=== PATIENT | female | born 1940 | race Caucasian/White ===

== ENCOUNTER 2016-10-24 13:03 | Emergency (ER) | payer MEDICARE, OTHER ==
--- NOTE | 2016-10-24 13:46 | ER Document Report ---
ED General - General Chief Complaint: Closed Head Injury Stated Complaint: HEAD LACERATION Mode of Arrival: Medic Information source: Patient Notes: 76-year-old female presents after mechanical fall with complaints of left hip pain shaking her head. Patient denies any neurological deficits is unable to bear weight - HPI Onset: Just prior to arrival Onset/Duration: Sudden Quality of pain: Sharp Severity: Mild Pain Level: 2 Associated symptoms: None Exacerbated by: Movement Relieved by: Denies Similar symptoms previously: No Recently seen / treated by doctor: No Past Medical History - Social History Smoking Status: Never Smoker Cigarette use (# per day): No Chew tobacco use (# tins/day): No Smoking Education Provided: No Family History: Reviewed & Not Pertinent Review of Systems - Review of Systems Notes: REVIEW OF SYSTEMS: CONSTITUTIONAL : Denies fever, chills, or sweats. Denies recent illness. EENT: Denies eye, ear, throat, or mouth pain or symptoms. Denies nasal or sinus congestion or discharge. Denies throat, tongue, or mouth swelling or difficulty swallowing. CARDIOVASCULAR: Denies chest pain. Denies palpitations or racing or irregular heart beat. Denies ankle edema. RESPIRATORY: Denies cough, cold, or chest congestion. Denies shortness of breath, difficulty breathing, or wheezing. GASTROINTESTINAL: Denies abdominal pain or distention. Denies nausea, vomiting , or diarrhea. Denies blood in vomitus, stools, or per rectum. Denies black, tarry stools. Denies constipation. GENITOURINARY: Denies difficulty urinating, painful urination, burning, frequency, blood in urine, or discharge. FEMALE GENITOURINARY: Denies vaginal bleeding, heavy or abnormal periods, irregular periods. Denies vaginal discharge or odor. MUSCULOSKELETAL: Admits to left hip pain. SKIN: Admits to bleeding from the head HEMATOLOGIC : Denies easy bruising or bleeding. LYMPHATIC: Denies swollen, enlarged glands. NEUROLOGICAL: Denies confusion or altered mental status. Denies passing out or loss of consciousness. Denies dizziness or lightheadedness. Denies headache. Denies weakness or paralysis or loss of use of either side. Denies problems with gait or speech. Denies sensory loss, numbness, or tingling. Denies seizures. PSYCHIATRIC: Denies anxiety or stress. Denies depression, suicidal ideation, or homicidal ideation. ALL OTHER SYSTEMS REVIEWED AND NEGATIVE. Dictation was performed using [employer] voice recognition software PHYSICAL EXAMINATION: GENERAL: Well-appearing, well-nourished and in no acute distress. HEAD: Left scalp laceration 3.2 cm dried blood noted EYES: Pupils equal round and reactive to light, extraocular movements intact, conjunctiva are normal. ENT: Nares patent, oropharynx clear without exudates. Moist mucous membranes. NECK: Normal range of motion, supple without lymphadenopathy LUNGS: Breath sounds clear to auscultation bilaterally and equal. No wheezes rales or rhonchi. HEART: Regular rate and rhythm without murmurs ABDOMEN: Soft, nontender, nondistended abdomen. No guarding, no rebound. No masses appreciated. Female : deferred Musculoskeletal: Left leg is shortened and externally rotated NEUROLOGICAL: Cranial nerves grossly intact. Normal speech, normal gait. Normal sensory, motor exams PSYCH: Normal mood, normal affect. SKIN: 3.2 cm laceration Course - Re-evaluation Re-evalutation: 10/24/16 14:16 [facility] paged since we do not have orthopedic coverage 10/24/16 14:28 Patient received fentanyl prior to arrival to emergency department 10/24/16 14:[address] to have had a fracture, 2 times were made to transfer the patient to [facility] however phone was disconnected both times. I'm awaiting call back at this time - Diagnostic Test Radiology reviewed: Image reviewed, Reports reviewed - Intertrochanteric fracture Procedures - Laceration/Wound Repair Left Posterior Head Wound length (cm): 3 Wound's Depth, Shape: Linear Laceration pre-procedure: Sterile PPE donned Wound explored: Clean, No foreign body removed Wound Debrided: Minimal Wound Repaired With: Lizz Number of Sutures: 2 Layer Closure?: No Post-procedure NV exam normal: No Complications: No Discharge - Discharge Clinical Impression: Intertrochanteric fracture of left femur Qualifiers: Encounter type: initial encounter Fracture type: closed Qualified Code(s): S72.142A - Displaced intertrochanteric fracture of left femur, initial encounter for closed fracture Laceration of head Qualifiers: Encounter type: initial encounter Location of open wound of head: scalp Foreign body presence: without foreign body Qualified Code(s): S01.01XA - Laceration without foreign body of scalp, initial encounter Condition: Stable Disposition: [facility]
[2016-10-24] MEDS ORDERED: HYDROMORPHONE HCL INJ/PF 2 MG/ML AMPULE IV ONE ×2 (14:27→14:49)
[2016-10-24 14:51] LABS: ABSOLUTE BASOPHILS # (AUTO) 0.1 10^3/uL (0.0-0.2); ABSOLUTE LYMPHOCYTES (AUTO) 4.2 10^3/uL (0.5-4.7); ABSOLUTE MONOCYTES (AUTO) 0.8 10^3/uL (0.1-1.4); ABSOLUTE NEUT (AUTO) 8.7 10^3/uL (1.7-8.2); BASOPHILS % (AUTO) 0.6 % (0-2); EOSINOPHILS % (AUTO) 0.2 % (0-6); HEMATOCRIT 39.4 % (36.0-47.0); HEMOGLOBIN 12.8 g/dL (12.0-15.5); LYMPHOCYTES % (AUTO) 30.5 % (13-45); MEAN CORPUSCULAR HEMOGLOBIN 28.2 pg (27.0-33.4); MEAN CORPUSCULAR HGB CONC 32.5 g/dL (32.0-36.0); MEAN CORPUSCULAR VOLUME 87 fl (80-97); MONOCYTES % (AUTO) 5.6 % (3-13); RED BLOOD COUNT 4.54 10^6/uL (3.72-5.28); RED CELL DISTRIBUTION WIDTH 14.4 % (11.5-14.0); SEGMENTED NEUTROPHILS % (AUTO) 63.1 % (42-78); WHITE BLOOD COUNT 13.9 10^3/uL (4.0-10.5)
[2016-10-24 14:59] LABS: APPEARANCE,URINE CLEAR; BILIRUBIN,URINE NEGATIVE (NEGATIVE); GLUCOSE, URINE NEGATIVE (NEGATIVE); KETONES,URINE NEGATIVE (NEGATIVE); LEUKOCYTE ESTERASE,URINE NEGATIVE (NEGATIVE); NITRITE,URINE NEGATIVE (NEGATIVE); PROTEIN,URINE NEGATIVE (NEGATIVE); URINE SPECIFIC GRAVITY 1.008; UROBILINOGEN,URINE NEGATIVE mg/dL (<2.0)
[2016-10-24 15:11] LABS: ALANINE AMINOTRANSFERASE 26 U/L (9-52); ALBUMIN 4.2 g/dL (3.5-5.0); ALKALINE PHOSPHATASE 83 U/L (38-126); ANION GAP 13 (5-19); ASPARTATE AMINO TRANSFERASE 25 U/L (14-36); BILIRUBIN,TOTAL 0.5 mg/dL (0.2-1.3); BLOOD UREA NITROGEN 25 mg/dL (7-20); CALCIUM 9.9 mg/dL (8.4-10.2); CARBON DIOXIDE 25 mmol/L (22-30); CHLORIDE 101 mmol/L (98-107); CREATINE KINASE 38 U/L (30-135); CREATININE RESULT 0.63 mg/dL (0.52-1.25); GLUCOSE 197 mg/dL (75-110); POTASSIUM 4.3 mmol/L (3.6-5.0); SODIUM 139.2 mmol/L (137-145); TOTAL PROTEIN 6.5 g/dL (6.3-8.2)
[2016-10-24 15:23] LABS: CREATINE KINASE MB 0.55 ng/mL (<4.55)
[2016-10-24 15:24] LABS: TROPONIN I < 0.012 ng/mL
[2016-10-24 15:44] VITALS: BP 127/65
--- NOTE | 2016-10-24 17:04 | ER Document Report ---
Doctor's Note Notes: 10/24/16 17:03 Patient reevaluated just prior to transport to [facility]. Patient states that her pain is well-controlled and she is in no distress. She is alert and conversant. Questions from the family answered. She does have mild oozing from her scalp laceration that has been stapled, and this will be cleaned and bandaged prior to her prior to her transfer.
== END 2016-10-24 17:45 | disposition short-term general hospital (02) ==
LOC: ER 13:03
PROC: 0HQ0XZZ Repair Scalp Skin, External Approach (ICD-10-PCS; principal; 2016-10-24)
DX: S72.142A Displaced intertrochanteric fracture of left femur, initial encounter for closed fracture (principal); S01.01XA Laceration without foreign body of scalp, initial encounter; W19.XXXA Unspecified fall, initial encounter
CPT/HCPCS: 12002; 99285; 51702; 96374; 36415; 82553; 82550; 85025; 80053; 81001; 84484; 83880; 71010; 70450; 72125; 72192; J1170

== ENCOUNTER 2020-03-05 15:16 | Inpatient (IN) | payer MEDICARE ==
[2020-03-05 15:50] LABS: VENOUS BLOOD BASE EXCESS -7.8 mmol/L; VENOUS BLOOD HCO3 17.6 mmol/L (20-32); VENOUS BLOOD PCO2 35.7 mmHg (35-63); VENOUS BLOOD PH 7.31 (7.30-7.42)
[2020-03-05 15:52] LABS: ABSOLUTE BASOPHILS # (AUTO) 0.1 10^3/uL (0.0-0.2); ABSOLUTE LYMPHOCYTES (AUTO) 2.7 10^3/uL (0.5-4.7); ABSOLUTE MONOCYTES (AUTO) 0.5 10^3/uL (0.1-1.4); BASOPHILS % (AUTO) 0.7 % (0-2); EOSINOPHILS % (AUTO) 0.1 % (0-6); HEMATOCRIT 43.8 % (36.0-47.0); HEMOGLOBIN 14.3 g/dL (12.0-15.5); LYMPHOCYTES % (AUTO) 19.9 % (13-45); MEAN CORPUSCULAR HEMOGLOBIN 26.6 pg (27.0-33.4); MEAN CORPUSCULAR HGB CONC 32.7 g/dL (32.0-36.0); MEAN CORPUSCULAR VOLUME 81 fl (80-97); PLATELET COUNT 345 10^3/uL (150-450); RED BLOOD COUNT 5.38 10^6/uL (3.72-5.28); RED CELL DISTRIBUTION WIDTH 19.4 % (11.5-14.0); SEGMENTED NEUTROPHILS % (AUTO) 75.3 % (42-78); TOTAL CELLS COUNTED % (AUTO) 100 %; WHITE BLOOD COUNT 13.4 10^3/uL (4.0-10.5)
[2020-03-05 16:12] LABS: ALBUMIN 4.6 g/dL (3.5-5.0); ALKALINE PHOSPHATASE 90 U/L (38-126); ASPARTATE AMINO TRANSFERASE 35 U/L (14-36); BILIRUBIN,DIRECT 0.5 mg/dL (0.0-0.4); BILIRUBIN,TOTAL 1.1 mg/dL (0.2-1.3); BLOOD UREA NITROGEN 51 mg/dL (7-20); CALCIUM 11.4 mg/dL (8.4-10.2); GLUCOSE 281 mg/dL (75-110); POTASSIUM 4.1 mmol/L (3.6-5.0); TOTAL PROTEIN 7.4 g/dL (6.3-8.2)
[2020-03-05 16:18] LABS: CARBON DIOXIDE 17 mmol/L (22-30); CHLORIDE 85 mmol/L (98-107)
--- NOTE | 2020-03-05 16:20 | RADIOLOGY REPORT (SQ) ---
EXAM DESCRIPTION: 10/24/2016 CHEST SINGLE VIEW IMAGES COMPLETED DATE/TIME: 03/05/2020 3:00 pm REASON FOR STUDY: bed 19 sepsis protocol COMPARISON: 10/24/2026 EXAM PARAMETERS: NUMBER OF VIEWS: One view. TECHNIQUE: Single frontal radiographic view of the chest acquired. RADIATION DOSE: NA LIMITATIONS: None. FINDINGS: LUNGS AND PLEURA: No opacities, masses or pneumothorax. No pleural effusion. MEDIASTINUM AND HILAR STRUCTURES: No masses. Contour normal. HEART AND VASCULAR STRUCTURES: Heart normal in size. Normal vasculature. BONES: No acute findings. HARDWARE: None in the chest. OTHER: No other significant finding. IMPRESSION: NO ACUTE RADIOGRAPHIC FINDING IN THE CHEST. TECHNICAL DOCUMENTATION: JOB ID: [id number] 2010 [employer]- All Rights Reserved Reading location - IP/workstation name: [email or web address]
[2020-03-05 16:23] LABS: ANION GAP 28 (5-19)
[2020-03-05 16:24] LABS: INTERNATIONAL RATION (INR) 3.71; PROTHROMBIN TIME 37.7 SEC (11.4-15.4)
[2020-03-05] MEDS ORDERED: RINGERS SOLUTION,LACTATED 1,000 ML IV PRN (16:26)
--- NOTE | 2020-03-05 16:37 | ER Document Report ---
ED General - General Chief Complaint: Weakness Stated Complaint: SEPSIS Time Seen by Provider: 03/05/20 16:19 - HPI Notes: Patient is a 79-year-old female who is brought into the emergency department for evaluation. The majority of the history is gained from nursing, who is spoken directly to son. Evidently he has sent her in for failure to thrive. She has been losing weight. She is been falling frequently. She lives alone, has dementia, is on Eliquis. He is concerned that she is no longer safe at home, was hoping for intermediate placement. She actually an appointment with her doctor tomorrow. The patient admits that she just does not have much of an appetite, states her stomach bothers her, but denies any paulina vomiting. She cannot tell me when her last bowel movement was. She states she has no pain or complaints at this time. She admits she has fallen, and I asked her if she has hit her head. She states to me "every time." - Related Data Allergies/Adverse Reactions: Sulfa (Sulfonamide Antibiotics) Allergy (Verified 03/05/20 16:15) Past Medical History - General Information source: Relative, Emergency Med Personnel - Social History Smoking Status: Former Smoker Family History: Reviewed & Not Pertinent Patient has homicidal ideation: No - Past Medical History Cardiac Medical History: Reports: Hx Atrial Fibrillation Review of Systems - Review of Systems Constitutional: See HPI Gastrointestinal: See HPI Musculoskeletal: See HPI -: Yes All other systems reviewed and negative Physical Exam - Vital signs Vitals: Temp 95.8 F L 03/05/20 15:16 - Notes Notes: This is a frail-appearing 79-year-old female who appears her stated age. She is sitting upright in the bed, appears comfortable. Vital signs reviewed, please refer to chart. Head is normocephalic, atraumatic. Pupils equal round, reactive to light. Neck is supple without meningismus. Heart is regular rate and rhythm, systolic murmur noted. Lungs are clear to auscultation bilaterally. Abdomen is soft, nontender, normoactive bowel sounds throughout. Extremities without cyanosis, clubbing. Posterior calves are nontender. Peripheral pulses are equal, but diminished. Skin is warm and dry. Patient is awake, alert, disoriented to time, believes she is in [facility]. She moves all 4 extremities spontaneously, no gross facial asymmetry. Course - Re-evaluation Re-evalutation: 03/05/20 16:35 Patient presents to the emergency department for evaluation. Upon arrival she was found to be hypothermic. Rectal temperature confirmed this. She was in itially given warm blankets, I will go ahead and start warmed fluids as well. Laboratory investigations confirm leukocytosis, hyponatremia, abnormal renal function. Sepsis work-up has begun, and her lactic acid was over 10. I do not have any records of congestive heart failure, 2 L of warmed LR are ordered. Because of her frequent falls and history of dementia, as well as being anticoagulated, decision was made to take a CT scan of the head and neck as well. Currently, patient's blood pressure is 93/50, she has received fluid resuscitation. We will continue IV fluids. Awaiting further results, she is stable at this time. We will continue to monitor. 03/05/20 17:39 Patient being rewarmed. She has been stable. Given her hypothermia, acute kidney injury, and mild leukocytosis, she does meet sirs criteria. She is treated with IV cefepime. Cultures are all pending. I spoke with Dr. Young, he will admit the patient for further care. - Vital Signs Vital signs: Temp Pulse Resp BP Pulse Ox 95.8 F L 100 03/05/20 15:16 03/05/20 15:17 - Laboratory Result Diagrams: 03/05/20 15:10 03/05/20 15:10 Laboratory results interpreted by me: 03/05/20 03/05/20 03/05/20 15:10 15:10 15:10 WBC 13.4 H RBC 5.38 H MCH 26.6 L RDW 19.4 H Absolute Neuts (auto) 10.0 H PT VBG HCO3 17.6 L Sodium 129.7 L Chloride 85 L Carbon Dioxide 17 L Anion Gap 28 H BUN 51 H Creatinine 1.58 H Est GFR ( Amer) 38 L Est GFR (MDRD) Non-Af 32 L Glucose 281 H POC Glucose Lactic Acid Calcium 11.4 H Direct Bilirubin 0.5 H Urine Ketones 03/05/20 03/05/20 03/05/20 15:10 15:32 15:40 WBC RBC MCH RDW Absolute Neuts (auto) PT VBG HCO3 Sodium Chloride Carbon Dioxide Anion Gap BUN Creatinine Est GFR ( Amer) Est GFR (MDRD) Non-Af Glucose POC Glucose 242 H Lactic Acid 10.2 H Calcium Direct Bilirubin Urine Ketones TRACE H 03/05/20 16:00 WBC RBC MCH RDW Absolute Neuts (auto) PT 37.7 H VBG HCO3 Sodium Chloride Carbon Dioxide Anion Gap BUN Creatinine Est GFR ( Amer) Est GFR (MDRD) Non-Af Glucose POC Glucose Lactic Acid Calcium Direct Bilirubin Urine Ketones - Diagnostic Test Radiology reviewed: Reports reviewed Radiology results interpreted by me: 03/05/20 17:38 Chest X-Ray 03/05/20 15:17 IMPRESSION: NO ACUTE RADIOGRAPHIC FINDING IN THE CHEST. Head CT 03/05/20 16:25 IMPRESSION: NO ACUTE INTRACRANIAL FINDINGS. EVIDENCE OF ACUTE STROKE: NO. Cervical Spine CT 03/05/20 16:26 IMPRESSION: CHRONIC DEGENERATIVE CHANGES. NO ACUTE FINDINGS. - EKG Interpretation by Me Additional EKG results interpreted by me: 03/05/20 17:39 Atrial fibrillation with a rate of 64 bpm. Left axis deviation, IVCD. No acute ST elevation concerning for ischemia infarction. No studies immediately available for comparison. Discharge - Discharge Clinical Impression: SIRS (systemic inflammatory response syndrome), Hyponatremia, Abnormal renal function, Lactic acidosis Hypothermia Qualifiers: Encounter type: initial encounter Qualified Code(s): T68.XXXA - Hypothermia, initial encounter Condition: Stable Disposition: ADMITTED INPATIENT Admitting Provider: Hector (Hospitalist) Unit Admitted: [facility]
[2020-03-05] MEDS ORDERED: RINGERS SOLUTION,LACTATED 1,000 ML IV ONE (17:05)
[2020-03-05 17:12] LABS: APPEARANCE,URINE CLEAR; BILIRUBIN,URINE NEGATIVE (NEGATIVE); COLOR,URINE YELLOW; GLUCOSE, URINE NEGATIVE (NEGATIVE); KETONES,URINE TRACE mg/dL (NEGATIVE); LEUKOCYTE ESTERASE,URINE NEGATIVE (NEGATIVE); NITRITE,URINE NEGATIVE (NEGATIVE); PROTEIN,URINE NEGATIVE (NEGATIVE); URINE SPECIFIC GRAVITY 1.013; UROBILINOGEN,URINE NEGATIVE mg/dL (<2.0)
--- NOTE | 2020-03-05 17:17 | RADIOLOGY REPORT (SQ) ---
EXAM DESCRIPTION: CT HEAD WITHOUT IMAGES COMPLETED DATE/TIME: 03/05/2020 5:05 pm REASON FOR STUDY: fall, on eliquis COMPARISON: 10/24/2016 TECHNIQUE: Axial images acquired through the brain without intravenous contrast. Images reviewed wit h bone, brain and subdural windows. Images stored on PACS. All CT scanners at this facility use dose modulation, iterative reconstruction, and/or weight based d osing when appropriate to reduce radiation dose to as low as reasonably achievable (ALARA). [facility]: Dose Right [facility]: CareDose [facility]: Dose Right [facility]: Teradose 4D [facility]: [employer]ecuritrex RADIATION DOSE: CT Rad equipment meets quality standard of care and radiation dose reduction techniq ues were employed. CTDIvol: 53.2 mGy. DLP: 1070 mGy-cm.. LIMITATIONS: None. FINDINGS: VENTRICLES: Normal size and contour. CEREBRUM: No masses. No hemorrhage. No midline shift. Age appropriate white matter. No evidence for a cute infarction. CEREBELLUM: No masses. No hemorrhage. No alteration of density. No evidence for acute infarction. EXTRA-AXIAL SPACES: No fluid collections. ORBITS AND GLOBE: No intra- or extraconal masses. Normal contour of globe without masses. CALVARIUM: No fracture. PARANASAL SINUSES: No fluid or mucosal thickening. SOFT TISSUES: No mass or hematoma. OTHER: No other significant finding. IMPRESSION: NO ACUTE INTRACRANIAL FINDINGS. EVIDENCE OF ACUTE STROKE: NO. TECHNICAL DOCUMENTATION: JOB ID: [id number] [place]-72 Quality ID # 436: Final reports with documentation of one or more dose reduction techniques (e.g., Au tomated exposure control, adjustment of the mA and/or kV according to patient size, use of iterative reconstruction technique) 2010 [employer] All Rights Reserved Reading location - IP/workstation name: [email or web address]
--- NOTE | 2020-03-05 17:20 | RADIOLOGY REPORT (SQ) ---
EXAM DESCRIPTION: CT CERVICAL SPINE WITHOUT IMAGES COMPLETED DATE/TIME: 03/05/2020 5:05 pm REASON FOR STUDY: fall COMPARISON: 10/24/2016 TECHNIQUE: Axial images acquired through the cervical spine without intravenous contrast. Images re viewed with lung, soft tissue and bone windows. Reconstructed coronal and sagittal MPR images review ed. Images stored on PACS. All CT scanners at this facility use dose modulation, iterative reconstruction, and/or weight based d osing when appropriate to reduce radiation dose to as low as reasonably achievable (ALARA). [facility]: Dose Right [facility]: CareDose [facility]: Dose Right [facility]: Teradose 4D [facility]: [employer] RADIATION DOSE: CT Rad equipment meets quality standard of care and radiation dose reduction techniq ues were employed. CTDIvol: 9.3 mGy. DLP: 151 mGy-cm. mGy. LIMITATIONS: None. FINDINGS: ALIGNMENT: Anatomic. MINERALIZATION: Normal. VERTEBRAL BODIES: No fractures or dislocation. DISCS: Multilevel disc space narrowing with osteophytes. FACETS, LATERAL MASSES, POSTERIOR ELEMENTS: Facet arthropathy. No fractures. No dislocation. No ac [place] findings. HARDWARE: None in the spine. VISUALIZED RIBS: No fractures. LUNG APICES AND SOFT TISSUES: No significant or acute findings. OTHER: No other significant finding. IMPRESSION: CHRONIC DEGENERATIVE CHANGES. NO ACUTE FINDINGS. TECHNICAL DOCUMENTATION: JOB ID: [id number] [place]-72 Quality ID # 436: Final reports with documentation of one or more dose reduction techniques (e.g., Au tomated exposure control, adjustment of the mA and/or kV according to patient size, use of iterative reconstruction technique) 2010 [employer]- All Rights Reserved Reading location - IP/workstation name: [email or web address]
[2020-03-05] MEDS ORDERED: CEFEPIME 1 GM/D5W RTU 1 GM/50 ML RTUPB IV ONE (17:33)
[2020-03-05] MEDS ORDERED: TEMAZEPAM 7.5 MG CAPSULE PO PRN (18:15)
[2020-03-05] MEDS ORDERED: PROMETHAZINE HCL INJ 25 MG/1 ML VIAL IV PRN (18:15)
[2020-03-05] MEDS ORDERED: MAGNESIUM HYDROXIDE SUSP 30 ML UDCUP PO PRN (18:15)
[2020-03-05] MEDS ORDERED: ONDANSETRON HCL INJ/PF 4 MG/2 ML SDV IV PRN (18:15)
[2020-03-05] MEDS ORDERED: IPRATROPIUM/ALBUTEROL 0.5-2.5 MG/3 ML AMPUL NEB PRN (18:15)
[2020-03-05] MEDS ORDERED: OXYCODONE-ACETAMINOPHEN 5-325 MG TABLET PO PRN (18:15)
[2020-03-05] MEDS ORDERED: ACETAMINOPHEN 325 MG TABLET PO PRN (18:15)
[2020-03-05] MEDS ORDERED: ZOLEDRONIC ACID 4 MG/100 ML RTU IV ONE (18:30)
--- NOTE | 2020-03-05 18:39 | PDOC H&P ---
History of Present Illness History of Present Illness: YUSRA LOVETT is a 79 year old female past medical history of atrial fibrillation anticoagulated, tobacco abuse, hypertension, dementia, who was brought to ED by her son who is not present at the room currently. Source of history is ED physician, chart review and patient herself. As per ED physician patient was brought to ED for concern about her rectal and falls and failure to thrive, patient lives by herself and family is concerned that she is not safe at home alone. Patient herself is very pleasant and cooperative with physical examination but unfortunately she has some dementia and does not provide much history, she is alert and oriented x2 she said that she is living alone and takes care of herself, she does cook for herself however for the last 6 months she has not had much because of low appetite, otherwise she denies any weight changes, headache, vision changes, dysphagia, odynophagia, shortness of breath, chest pain, orthopnea, paroxysmal nocturnal dyspnea, nausea, vomiting, abdominal pain, diarrhea, polyuria, polydipsia or any dysuria. On initial ED evaluation patient was noted to be hypothermic with significant leukocytosis and elevated lactic acid and ARMANI. Patient was started on broad- spectrum IV antibiotics and IV fluids and hospitalist consulted for admission. Given history of recurrent falls and being anticoagulated a CT head and neck was obtained which were both negative for any acute abnormalities. Past Medical History Cardiac Medical History: Reports: Atrial Fibrillation Social History Smoking Status: Former Smoker Family History Family History: Reviewed & Not Pertinent Parental Family History Reviewed: Yes Children Family History Reviewed: Yes Sibling(s) Family History Reviewed.: Yes Medication/Allergy Home Medications: Apixaban [Eliquis 5 mg Tablet] 5 mg PO BID 03/05/20 Enalapril Maleate [Vasotec 2.5 mg Tablet] 2.5 mg PO Q12 03/05/20 Furosemide [Lasix 40 mg Tablet] 40 mg PO DAILY 03/05/20 Isosorbide Mononitrate [Imdur 30 mg Tablet.er] 30 mg PO Q12 03/05/20 Metformin HCl [Metformin HCl ER] 500 mg PO BID 03/05/20 Venlafaxine HCl 37.5 mg PO DAILY 03/05/20 Allergies/Adverse Reactions: Sulfa (Sulfonamide Antibiotics) Allergy (Verified 03/05/20 16:15) Review of Systems Review of Systems: as per hpi Physical Exam Vital Signs: Temp Pulse Resp BP Pulse Ox 95.8 F L 14 100/61 100 03/05/20 15:16 03/05/20 18:00 03/05/20 18:00 03/05/20 16:48 Intake & Output 03/04/20 03/05/20 03/06/20 06:59 06:59 06:59 Weight 67.1 kg General appearance: PRESENT: no acute distress, thin, well-developed, well- nourished Head exam: PRESENT: atraumatic, normocephalic Respiratory exam: PRESENT: clear to auscultation leonardo. ABSENT: rales, rhonchi, wheezes Cardiovascular exam: PRESENT: RRR. ABSENT: diastolic murmur, rubs, systolic murmur GI/Abdominal exam: PRESENT: normal bowel sounds, soft. ABSENT: distended, guarding, mass, organolmegaly, rebound, tenderness Extremities exam: PRESENT: full ROM. ABSENT: calf tenderness, clubbing, pedal edema Neurological exam: PRESENT: alert, awake, oriented to person, oriented to place, CN II-XII grossly intact. ABSENT: motor sensory deficit Skin exam: PRESENT: dry, intact, warm. ABSENT: cyanosis, rash Results Laboratory Results: 03/05/20 15:10 03/05/20 15:10 03/05/20 03/05/20 03/05/20 15:10 15:10 15:10 WBC 13.4 H RBC 5.38 H Hgb 14.3 Hct 43.8 MCV 81 MCH 26.6 L MCHC 32.7 RDW 19.4 H Plt Count 345 Seg Neutrophils % 75.3 VBG pH 7.31 VBG pCO2 35.7 VBG HCO3 17.6 L VBG Base Excess -7.8 Sodium 129.7 L Potassium 4.1 Chloride 85 L Carbon Dioxide 17 L Anion Gap 28 H BUN 51 H Creatinine 1.58 H Est GFR ( Amer) 38 L Glucose 281 H Lactic Acid Calcium 11.4 H Total Bilirubin 1.1 AST 35 Alkaline Phosphatase 90 Total Protein 7.4 Albumin 4.6 Urine Color Urine Appearance Urine pH Ur Specific [place] Urine Protein Urine Glucose (UA) Urine Ketones Urine Blood Urine Nitrite Ur Leukocyte Esterase Urine WBC (Auto) Urine RBC (Auto) 06/14/20 06/14/20 15:10 15:40 WBC RBC Hgb Hct MCV MCH MCHC RDW Plt Count Seg Neutrophils % VBG pH VBG pCO2 VBG HCO3 VBG Base Excess Sodium Potassium Chloride Carbon Dioxide Anion Gap BUN Creatinine Est GFR ( Amer) Glucose Lactic Acid 10.2 H Calcium Total Bilirubin AST Alkaline Phosphatase Total Protein Albumin Urine Color YELLOW Urine Appearance CLEAR Urine pH 5.0 Ur Specific [place] 1.013 Urine Protein NEGATIVE Urine Glucose (UA) NEGATIVE Urine Ketones TRACE H Urine Blood NEGATIVE Urine Nitrite NEGATIVE Ur Leukocyte Esterase NEGATIVE Urine WBC (Auto) 0 Urine RBC (Auto) 1 03/05/20 03/05/20 15:10 16:19 Troponin I Cancelled 0.040 Impressions: Chest X-Ray 03/05/20 15:17 IMPRESSION: NO ACUTE RADIOGRAPHIC FINDING IN THE CHEST. Head CT 03/05/20 16:25 IMPRESSION: NO ACUTE INTRACRANIAL FINDINGS. EVIDENCE OF ACUTE STROKE: NO. Cervical Spine CT 03/05/20 16:26 IMPRESSION: CHRONIC DEGENERATIVE CHANGES. NO ACUTE FINDINGS. Assessment and Plan - Diagnosis (1) Sepsis Qualifiers: Sepsis type: sepsis due to unspecified organism Sepsis acute organ dysfunction status: with acute organ dysfunction Severe sepsis acute organ dysfunction type: acute renal failure Acute renal failure type: unspecified Severe sepsis shock status: without septic shock Qualified Code(s): A41.9 - Sepsis, unspecified organism; R65.20 - Severe sepsis without septic shock; N17.9 - Acute kidney failure, unspecified Is this a current diagnosis for this admission?: Yes Plan: Evidenced by hypothermia, hypotension, ARMANI, lactic acidosis. Aggressive volume resuscitation guided by volume status, broad-spectrum IV antibiotics, blood culture. Admit to [facility], monitor vitals, trend lactic acid. (2) Hyponatremia Is this a current diagnosis for this admission?: Yes Plan: Most likely chronic. No mental status changes. Hypovolemic hyponatremia. 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 Continue normal saline with goal sodium correction of 8 to 10 mEq in the next 24 hours. BMP every 8 hours. Seizure precautions. (3) Hypercalcemia Is this a current diagnosis for this admission?: Yes Plan: Given history of tobacco abuse underlying malignancy is a consideration. Aggressive volume restriction guided by volume status. Zoledronic acid 1 dose. Calcium level every 8. Admit to telemetry. Acute kidney function. PTH, PTrH, vitamin D level, LDH. Chest x-ray CT head and CT neck negative for any lesions. If high suspicion for malignancy further imaging and oncology consultation should be pursued. (4) ARMANI (acute kidney injury) Is this a current diagnosis for this admission?: Yes Plan: Likely due to underlying sepsis or hypercalcemia. Volume resuscitation guided by volume status. Monitor electrolytes and replace as needed. Renal ultrasound. Urine sodium. Urine creatinine. Fractional excretion urinary sodium. (5) Hypertension Qualifiers: Hypertension type: essential hypertension Qualified Code(s): I10 - Essential (primary) hypertension Is this a current diagnosis for this admission?: Yes Plan: History of hypertension. Monitor vitals. Resume meds once appropriate. (6) Failure to thrive Qualifiers: Failure to thrive age range: in adult Qualified Code(s): R62.7 - Adult failure to thrive Is this a current diagnosis for this admission?: Yes Plan: Consult registered dietitian. (7) Atrial fibrillation Qualifiers: Atrial fibrillation type: longstanding persistent Qualified Code(s): I48.11 - Longstanding persistent atrial fibrillation Is this a current diagnosis for this admission?: Yes Plan: Rate controlled. Anticoagulated. Resume home meds. outpatient PCP and cardiology follow-up.
[2020-03-05] MEDS ORDERED: METOPROLOL TARTRATE PF/INJ 5 MG/5 ML SDV IV PRN (18:40)
[2020-03-05] MEDS ORDERED: HYDRALAZINE HCL INJ/PF 20 MG/1 ML SDV IV PRN (18:40)
[2020-03-05 19:04] LABS: URINE CREATININE 68.4 mg/dL (15-278)
[2020-03-05] MEDS: NORMAL SALINE 1000 ML 1,000 ML IV PRN (21:52)
[2020-03-05] MEDS ORDERED: ENALAPRIL MALEATE 2.5 MG TABLET PO SCH (22:00)
[2020-03-05] MEDS: ISOSORBIDE MONONITRATE 30 MG TAB.ER.24H PO SCH (22:30)
[2020-03-05] MEDS: FAMOTIDINE 20 MG TABLET PO SCH (22:31)
--- NOTE | 2020-03-05 22:37 | EKG REPORT ---
SEVERITY:- ABNORMAL ECG - ATRIAL FIBRILLATION INCOMPLETE LEFT BUNDLE BRANCH BLOCK PROBABLE LEFT VENTRICULAR HYPERTROPHY : Confirmed by: Josefa Herrera MD 05-Mar-2020 22:36:53
[2020-03-05 23:05] LABS: ANION GAP 12 (5-19); BLOOD UREA NITROGEN 54 mg/dL (7-20); CALCIUM 10.5 mg/dL (8.4-10.2); CHLORIDE 89 mmol/L (98-107); GLUCOSE 126 mg/dL (75-110)
[2020-03-05 23:27] LABS: CARBON DIOXIDE 28 mmol/L (22-30)
[2020-03-06] MEDS: NORMAL SALINE 1000 ML 1,000 ML IV PRN ×2 (04:40→14:53)
[2020-03-06] MEDS: CEFEPIME 1 GM/D5W RTU 1 GM/50 ML RTUPB IV SCH ×2 (05:08→17:25)
[2020-03-06 05:56] LABS: ABSOLUTE EOSINOPHILS # (AUTO) 0.1 10^3/uL (0.0-0.6); ABSOLUTE LYMPHOCYTES (AUTO) 1.7 10^3/uL (0.5-4.7); ABSOLUTE MONOCYTES (AUTO) 0.6 10^3/uL (0.1-1.4); ABSOLUTE NEUT (AUTO) 4.7 10^3/uL (1.7-8.2); BASOPHILS % (AUTO) 0.5 % (0-2); HEMATOCRIT 35.1 % (36.0-47.0); LYMPHOCYTES % (AUTO) 24.2 % (13-45); MEAN CORPUSCULAR HEMOGLOBIN 26.4 pg (27.0-33.4); MEAN CORPUSCULAR HGB CONC 33.6 g/dL (32.0-36.0); MEAN CORPUSCULAR VOLUME 79 fl (80-97); MONOCYTES % (AUTO) 9.1 % (3-13); PLATELET COUNT 216 10^3/uL (150-450); RED BLOOD COUNT 4.47 10^6/uL (3.72-5.28); RED CELL DISTRIBUTION WIDTH 19.6 % (11.5-14.0); SEGMENTED NEUTROPHILS % (AUTO) 65.2 % (42-78); TOTAL CELLS COUNTED % (AUTO) 100 %; WHITE BLOOD COUNT 7.1 10^3/uL (4.0-10.5)
[2020-03-06 05:57] LABS: HEMOGLOBIN 11.8 g/dL (12.0-15.5)
[2020-03-06 06:21] LABS: ANION GAP 11 (5-19); BLOOD UREA NITROGEN 51 mg/dL (7-20); CALCIUM 10.1 mg/dL (8.4-10.2); CARBON DIOXIDE 26 mmol/L (22-30); CHLORIDE 91 mmol/L (98-107); GLUCOSE 124 mg/dL (75-110); POTASSIUM 4.3 mmol/L (3.6-5.0)
[2020-03-06] MEDS: DOCUSATE SODIUM 100 MG CAPSULE PO SCH (10:52)
[2020-03-06] MEDS: APIXABAN 5 MG TABLET PO SCH ×2 (10:52→17:25)
[2020-03-06] MEDS: VENLAFAXINE HCL 75 MG TABLET PO SCH (10:52)
[2020-03-06] MEDS: ISOSORBIDE MONONITRATE 30 MG TAB.ER.24H PO SCH ×2 (10:52→22:06)
[2020-03-06] MEDS: FAMOTIDINE 20 MG TABLET PO SCH ×2 (10:52→22:06)
--- NOTE | 2020-03-06 11:24 | RADIOLOGY REPORT (SQ) ---
EXAM DESCRIPTION: U/S RETROPERITON (RENAL/AORTA) IMAGES COMPLETED DATE/TIME: 03/06/2020 11:06 am REASON FOR STUDY: ARMANI COMPARISON: None. TECHNIQUE: Dynamic and static grayscale images acquired of the kidneys and bladder and recorded on P ACS. Additional selected color Doppler and spectral images recorded. LIMITATIONS: None. FINDINGS: RIGHT KIDNEY: The right kidney measures 10.3 x 4.7 x 5.2 cm, normal size. Normal echogeni city. No solid or suspicious masses. No hydronephrosis. No calcifications. LEFT KIDNEY: The left kidney measures 9.3 x 4.6 x 6.2 cm, normal size. Normal echogenicity. No solid or suspicious masses. No hydronephrosis. No calcifications. BLADDER: Li catheter within the urinary bladder. OTHER FINDINGS: No other significant finding. IMPRESSION: 1. NORMAL RENAL ULTRASOUND. 2. Li catheter within the urinary bladder. TECHNICAL DOCUMENTATION: JOB ID: [id number] 2010 [employer]- All Rights Reserved Reading location - IP/workstation name: [email or web address]
--- NOTE | 2020-03-06 14:06 | PDOC PROGRESS REPORT ---
Subjective Progress Note for:: 03/06/20 Subjective:: YUSRA LOVETT is a 79 year old female past medical history of atrial fibrillation anticoagulated, tobacco abuse, hypertension, dementia, who was admitted for SIRS and hyponatremia. Patient was seen on afternoon rounds. She was found resting in bed, comfortably, on room air. She was sleeping soundly; did wake briefly when I said her name but did not interact with any further answer questions. Per nursing, patient was participatory with physical therapy this morning. Oriented to self but otherwise confused. She appears comfortable and has not noted to be in any acute distress. No concerns per nursing. Reason For Visit: SEPSIS HYPERCALCEMIA HYPOTHERMIA Physical Exam Vital Signs: Temp Pulse Resp BP Pulse Ox 97.3 F 71 15 98/59 L 100 03/06/20 11:46 03/06/20 11:46 03/06/20 11:46 03/06/20 11:46 03/06/20 11:46 Intake & Output 03/05/20 03/06/20 03/07/20 06:59 06:59 06:59 Intake Total 2410 678 Output Total 1650 1425 Balance 760 -747 Weight 64.3 kg 64.3 kg General appearance: PRESENT: no acute distress, cooperative, thin, well- developed, well-nourished, other - frail, chronically ill appearing Head exam: PRESENT: atraumatic, normocephalic Eye exam: PRESENT: conjunctiva pink, EOMI, PERRLA. ABSENT: scleral icterus Ear exam: PRESENT: normal external ear exam Mouth exam: PRESENT: moist, tongue midline Respiratory exam: PRESENT: clear to auscultation leonardo, symmetrical, unlabored. ABSENT: rales, rhonchi, wheezes Cardiovascular exam: PRESENT: RRR, +S1, +S2. ABSENT: diastolic murmur, rubs, systolic murmur Pulses: PRESENT: normal dorsalis pedis pul Vascular exam: PRESENT: normal capillary refill GI/Abdominal exam: PRESENT: normal bowel sounds, soft. ABSENT: distended, guarding, mass, organolmegaly, rebound, tenderness Rectal exam: PRESENT: deferred Gentrourinary exam: PRESENT: indwelling catheter Extremities exam: PRESENT: full ROM. ABSENT: calf tenderness, clubbing, pedal edema Neurological exam: PRESENT: alert, awake, oriented to person, CN II-XII grossly intact. ABSENT: oriented to place, oriented to time, oriented to situation, motor sensory deficit Psychiatric exam: PRESENT: appropriate affect, normal mood. ABSENT: homicidal ideation, suicidal ideation Skin exam: PRESENT: dry, intact, warm. ABSENT: cyanosis, rash Results Laboratory Results: 03/06/20 05:03 03/06/20 05:03 03/05/20 03/05/20 03/05/20 15:10 15:10 15:10 WBC 13.4 H RBC 5.38 H Hgb 14.3 Hct 43.8 MCV 81 MCH 26.6 L MCHC 32.7 RDW 19.4 H Plt Count 345 Seg Neutrophils % 75.3 VBG pH 7.31 VBG pCO2 35.7 VBG HCO3 17.6 L VBG Base Excess -7.8 Sodium 129.7 L Potassium 4.1 Chloride 85 L Carbon Dioxide 17 L Anion Gap 28 H BUN 51 H Creatinine 1.58 H Est GFR ( Amer) 38 L Glucose 281 H Lactic Acid Calcium 11.4 H Total Bilirubin 1.1 AST 35 Alkaline Phosphatase 90 Total Protein 7.4 Albumin 4.6 PTH Intact Urine Color Urine Appearance Urine pH Ur Specific Hermon Urine Protein Urine Glucose (UA) Urine Ketones Urine Blood Urine Nitrite Ur Leukocyte Esterase Urine WBC (Auto) Urine RBC (Auto) 03/05/20 03/05/20 03/05/20 15:10 15:40 18:35 WBC RBC Hgb Hct MCV MCH MCHC RDW Plt Count Seg Neutrophils % VBG pH VBG pCO2 VBG HCO3 VBG Base Excess Sodium Potassium Chloride Carbon Dioxide Anion Gap BUN Creatinine Est GFR ( Amer) Glucose Lactic Acid 10.2 H 8.8 H Calcium Total Bilirubin AST Alkaline Phosphatase Total Protein Albumin PTH Intact Urine Color YELLOW Urine Appearance CLEAR Urine pH 5.0 Ur Specific Hermon 1.013 Urine Protein NEGATIVE Urine Glucose (UA) NEGATIVE Urine Ketones TRACE H Urine Blood NEGATIVE Urine Nitrite NEGATIVE Ur Leukocyte Esterase NEGATIVE Urine WBC (Auto) 0 Urine RBC (Auto) 1 03/05/20 03/05/20 03/05/20 18:35 22:25 22:25 WBC RBC Hgb Hct MCV MCH MCHC RDW Plt Count Seg Neutrophils % VBG pH VBG pCO2 VBG HCO3 VBG Base Excess Sodium 128.5 L Potassium 5.0 Chloride 89 L Carbon Dioxide 28 D Anion Gap 12 BUN 54 H Creatinine 1.46 H Est GFR ( Amer) 42 L Glucose 126 H Lactic Acid 3.1 H Calcium 10.5 H Total Bilirubin AST Alkaline Phosphatase Total Protein Albumin PTH Intact Cancelled Urine Color Urine Appearance Urine pH Ur Specific Hermon Urine Protein Urine Glucose (UA) Urine Ketones Urine Blood Urine Nitrite Ur Leukocyte Esterase Urine WBC (Auto) Urine RBC (Auto) 03/05/20 03/06/20 03/06/20 22:25 05:03 05:03 WBC 7.1 RBC 4.47 Hgb 11.8 L D Hct 35.1 L MCV 79 L MCH 26.4 L MCHC 33.6 RDW 19.6 H Plt Count 216 Seg Neutrophils % 65.2 VBG pH VBG pCO2 VBG HCO3 VBG Base Excess Sodium 128.2 L Potassium 4.3 Chloride 91 L Carbon Dioxide 26 Anion Gap 11 BUN 51 H Creatinine 1.20 Est GFR ( Amer) 52 L Glucose 124 H Lactic Acid Calcium 10.1 Total Bilirubin AST Alkaline Phosphatase Total Protein Albumin PTH Intact 156.0 H Urine Color Urine Appearance Urine pH Ur Specific Hermon Urine Protein Urine Glucose (UA) Urine Ketones Urine Blood Urine Nitrite Ur Leukocyte Esterase Urine WBC (Auto) Urine RBC (Auto) 03/05/20 03/05/20 15:10 16:19 Troponin I Cancelled 0.040 Impressions: Chest X-Ray 03/05/20 15:17 IMPRESSION: NO ACUTE RADIOGRAPHIC FINDING IN THE CHEST. Head CT 03/05/20 16:25 IMPRESSION: NO ACUTE INTRACRANIAL FINDINGS. EVIDENCE OF ACUTE STROKE: NO. Cervical Spine CT 03/05/20 16:26 IMPRESSION: CHRONIC DEGENERATIVE CHANGES. NO ACUTE FINDINGS. Renal Ultrasound 03/06/20 00:00 IMPRESSION: 1. NORMAL RENAL ULTRASOUND. 2. Li catheter within the urinary bladder. Assessment and Plan - Diagnosis (1) SIRS (systemic inflammatory response syndrome) Is this a current diagnosis for this admission?: Yes Plan: Improved; vital signs have stabalized, leukocytosis resolved, lactic acid trending down, ARMANI is improved. Evidenced by hypothermia, hypotension, ARMANI, lactic acidosis. Urinalysis is negative. CXR benign Blood and urine cultures NGTD Aggressive volume resuscitation guided by volume status Continue broad-spectrum IV antibiotics Admit to IMCU, monitor vitals, trend lactic acid. (2) Hyponatremia Is this a current diagnosis for this admission?: Yes Plan: Most likely chronic. No mental status changes. Hypovolemic hyponatremia. 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 Continue normal saline with goal sodium correction of 8 to 10 mEq in the next 24 hours. Follow up BMP Seizure precautions. (3) ARMANI (acute kidney injury) Is this a current diagnosis for this admission?: Yes Plan: Improved; Cr 1.58/BUN 51-> 1.20/51 Likely due to underlying SIRS/sepsis or hypercalcemia. Consider underlying CKD based on BUN that remains unchanged despite volume resuscitation. Renal ultrasound is normal. Volume resuscitation guided by volume status. Monitor electrolytes and replace as needed. (4) Atrial fibrillation Qualifiers: Atrial fibrillation type: longstanding persistent Qualified Code(s): I48.11 - Longstanding persistent atrial fibrillation Is this a current diagnosis for this admission?: Yes Plan: Rate controlled without beta or calcium channel blockers. Anticoagulated on Eliquis. Outpatient PCP and cardiology follow-up. (5) Failure to thrive Qualifiers: Failure to thrive age range: in adult Qualified Code(s): R62.7 - Adult andreina lure to thrive Is this a current diagnosis for this admission?: Yes Plan: Consult registered dietitian. (6) Hypercalcemia Is this a current diagnosis for this admission?: Yes Plan: Improved; Ca 11.4-> 10.5-> 10.1 Given history of tobacco abuse underlying malignancy is a consideration. Aggressive volume restriction guided by volume status. Zoledronic acid 1 dose. Admit to telemetry. Acute kidney injury; improving. PTH 156, PTrH pending, vitamin D level 44.4, LDH 144. Chest x-ray, CT head and CT neck negative for any lesions. Follow up chemistry Consider oncology consultation should hypercalcemia persist/reoccur (7) Hypertension Qualifiers: Hypertension type: essential hypertension Qualified Code(s): I10 - Essential (primary) hypertension Is this a current diagnosis for this admission?: Yes Plan: History of hypertension. Monitor vitals. Resume home dose Isosorbide. (8) Sepsis Qualifiers: Sepsis type: sepsis due to unspecified organism Sepsis acute organ dysfunction status: with acute organ dysfunction Severe sepsis acute organ dysfunction type: acute renal failure Acute renal failure type: unspecified Severe sepsis shock status: without septic shock Qualified Code(s): A41.9 - Sepsis, unspecified organism; R65.20 - Severe sepsis without septic shock; N17.9 - Acute kidney failure, unspecified Is this a current diagnosis for this admission?: Yes Plan: As in #1 Evidence of sepsis without identified source of infectious process. - Time Time Spent with patient: 35 or more minutes Medications reviewed and adjusted accordingly: Yes Anticipated discharge: SNF
[2020-03-06 14:38] LABS: HEMOGLOBIN 11.6 g/dL (12.0-15.5); MEAN CORPUSCULAR HEMOGLOBIN 26.7 pg (27.0-33.4); MEAN CORPUSCULAR HGB CONC 34.2 g/dL (32.0-36.0); MEAN CORPUSCULAR VOLUME 78 fl (80-97); PLATELET COUNT 214 10^3/uL (150-450); RED BLOOD COUNT 4.34 10^6/uL (3.72-5.28); RED CELL DISTRIBUTION WIDTH 19.3 % (11.5-14.0); WHITE BLOOD COUNT 6.5 10^3/uL (4.0-10.5)
[2020-03-07] MEDS: NORMAL SALINE 1000 ML 1,000 ML IV PRN ×2 (01:51→21:14)
[2020-03-07] MEDS: CEFEPIME 1 GM/D5W RTU 1 GM/50 ML RTUPB IV SCH ×2 (05:24→17:29)
[2020-03-07 06:45] LABS: BLOOD UREA NITROGEN 27 mg/dL (7-20); CALCIUM 9.6 mg/dL (8.4-10.2); CHLORIDE 98 mmol/L (98-107); GLUCOSE 128 mg/dL (75-110); POTASSIUM 3.4 mmol/L (3.6-5.0)
[2020-03-07 06:51] LABS: CARBON DIOXIDE 31 mmol/L (22-30)
[2020-03-07 07:05] LABS: ANION GAP 4 (5-19)
[2020-03-07] MEDS: ISOSORBIDE MONONITRATE 30 MG TAB.ER.24H PO SCH ×2 (09:25→21:13)
[2020-03-07] MEDS: DOCUSATE SODIUM 100 MG CAPSULE PO SCH (09:25)
[2020-03-07] MEDS: APIXABAN 5 MG TABLET PO SCH ×2 (09:25→17:29)
[2020-03-07] MEDS: VENLAFAXINE HCL 75 MG TABLET PO SCH (09:25)
[2020-03-07] MEDS: FAMOTIDINE 20 MG TABLET PO SCH ×2 (09:25→21:13)
--- NOTE | 2020-03-07 12:35 | PDOC PROGRESS REPORT ---
Subjective Progress Note for:: 03/07/20 Subjective:: YUSRA LOVETT is a 79 year old female past medical history of atrial fibrillation anticoagulated, tobacco abuse, hypertension, dementia, who was admitted for SIRS and hyponatremia. Patient was seen on morning rounds. She was found resting in bed, comfortably, on room air. She was sleeping soundly; did wake easily when I said her name. She tells me she is uncomfortable, but then denies pain when asked where she hurts. She is advised her breakfast has been delivers; she states she is "not hungry right now." Mentioned that patient might benefit from transfer to a 'usp'; she states, "if that's best," and then closes her eyes to, presumably, go back to sleep. ROS is limited r/t mentation. She appears comfortable and has not noted to be in any acute distress. No concerns per nursing. Discussed with Patient Advocacy family request for visitation; I have no objections. In fact, if a family member would be available for an extended visit (several hours late evening) the patient may benefit from less confusion/agitation as nursing reports sundowning symptoms. Reason For Visit: SEPSIS HYPERCALCEMIA HYPOTHERMIA Physical Exam Vital Signs: Temp Pulse Resp BP Pulse Ox 97.7 F 74 18 100/50 L 96 03/07/20 11:30 03/07/20 11:51 03/07/20 11:51 03/07/20 11:30 03/07/20 11:51 Intake & Output 03/06/20 03/07/20 03/08/20 06:59 06:59 06:59 Intake Total 2460 1878 100 Output Total 1650 3425 400 Balance 810 -1547 -300 Weight 64.3 kg 63.1 kg General appearance: PRESENT: no acute distress, cooperative, well-developed, well-nourished, other - frail, chronically ill appearing Head exam: PRESENT: atraumatic, normocephalic Eye exam: PRESENT: conjunctiva pink, EOMI, PERRLA. ABSENT: scleral icterus Mouth exam: PRESENT: moist, tongue midline Neck exam: ABSENT: carotid bruit, JVD, lymphadenopathy, thyromegaly Respiratory exam: PRESENT: clear to auscultation leonardo, symmetrical, unlabored. ABSENT: rales, rhonchi, wheezes Cardiovascular exam: PRESENT: RRR. ABSENT: diastolic murmur, rubs, systolic murmur Vascular exam: PRESENT: normal capillary refill Gentrourinary exam: PRESENT: indwelling catheter Extremities exam: PRESENT: full ROM. ABSENT: calf tenderness, clubbing, pedal edema Musculoskeletal exam: PRESENT: ambulatory - w/ FWW and assist Neurological exam: PRESENT: alert, awake, oriented to person, CN II-XII grossly intact, other - Pleasantly confused. ABSENT: motor sensory deficit Psychiatric exam: PRESENT: appropriate affect, normal mood. ABSENT: homicidal ideation, suicidal ideation Skin exam: PRESENT: dry, intact, warm. ABSENT: cyanosis, rash Results Laboratory Results: 03/06/20 14:27 03/07/20 05:49 03/06/20 03/06/20 03/07/20 14:27 14:27 05:49 WBC 6.5 RBC 4.34 Hgb 11.6 L Hct 34.0 L MCV 78 L MCH 26.7 L MCHC 34.2 RDW 19.3 H Plt Count 214 Sodium 132.5 L Potassium 3.4 L Chloride 98 Carbon Dioxide 31 H Anion Gap 4 L BUN 27 H Creatinine 0.85 Est GFR ( Amer) > 60 Glucose 128 H Lactic Acid 1.1 Calcium 9.6 03/07/20 05:49 WBC RBC Hgb Hct MCV MCH MCHC RDW Plt Count Sodium Potassium Chloride Carbon Dioxide Anion Gap BUN Creatinine Est GFR ( Amer) Glucose Lactic Acid 0.9 Calcium 03/05/20 15:40 Clean Catch Midstream Urine Culture - Final NO GROWTH 2 DAYS 03/05/20 03/05/20 15:10 16:19 Troponin I Cancelled 0.040 Impressions: Chest X-Ray 03/05/20 15:17 IMPRESSION: NO ACUTE RADIOGRAPHIC FINDING IN THE CHEST. Head CT 03/05/20 16:25 IMPRESSION: NO ACUTE INTRACRANIAL FINDINGS. EVIDENCE OF ACUTE STROKE: NO. Cervical Spine CT 03/05/20 16:26 IMPRESSION: CHRONIC DEGENERATIVE CHANGES. NO ACUTE FINDINGS. Renal Ultrasound 03/06/20 00:00 IMPRESSION: 1. NORMAL RENAL ULTRASOUND. 2. Li catheter within the urinary bladder. Assessment and Plan - Diagnosis (1) SIRS (systemic inflammatory response syndrome) Is this a current diagnosis for this admission?: Yes Plan: Improved; vital signs have stabalized, leukocytosis and lactic acidosis have resolved, ARMANI is improved. Evidenced by hypothermia, hypotension, ARMANI, lactic acidosis. Urinalysis is negative. CXR benign Blood and urine cultures NGTD No clear infectious source Aggressive volume resuscitation guided by volume status Continue broad-spectrum IV antibiotics; plan to discontinue tomorrow (Normal WBC and afebrile x 3 days with negative cultures) Admit to IMCU, monitor vitals (2) Hyponatremia Is this a current diagnosis for this admission?: Yes Plan: Trending up 129.7-> 132.5 Most likely chronic. No mental status changes. Hypovolemic hyponatremia. 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 Continue IVF Liberalize dietary sodium Follow up BMP Seizure precautions. (3) ARMANI (acute kidney injury) Is this a current diagnosis for this admission?: Yes Plan: Improved; Cr 1.58/BUN 51-> 0.85/27 Likely due to underlying SIRS/sepsis or hypercalcemia. Consider underlying CKD based on BUN that remains unchanged despite volume resuscitation. Renal ultrasound is normal. Volume resuscitation guided by volume status. Monitor electrolytes and replace as needed. (4) Atrial fibrillation Qualifiers: Atrial fibrillation type: longstanding persistent Qualified Code(s): I48.11 - Longstanding persistent atrial fibrillation Is this a current diagnosis for this admission?: Yes Plan: Rate controlled without beta or calcium channel blockers. Anticoagulated on Eliquis. Outpatient PCP and cardiology follow-up. (5) Failure to thrive Qualifiers: Failure to thrive age range: in adult Qualified Code(s): R62.7 - Adult failure to thrive Is this a current diagnosis for this admission?: Yes Plan: Consult registered dietitian. (6) Hypercalcemia Is this a current diagnosis for this admission?: Yes Plan: Improved; Ca 11.4-> 10.5-> 10.1-> 9.6 Given history of tobacco abuse underlying malignancy is a consideration. Aggressive volume restriction guided by volume status. Zoledronic acid 1 dose. Admit to telemetry. Acute kidney injury; improving. PTH 156, PTrH pending, vitamin D level 44.4, LDH 144. Chest x-ray, CT head and CT neck negative for any lesions. Follow up chemistry Consider oncology consultation should hypercalcemia persist/reoccur (7) Hypertension Qualifiers: Hypertension type: essential hypertension Qualified Code(s): I10 - Essential (primary) hypertension Is this a current diagnosis for this admission?: Yes Plan: History of hypertension. Monitor vitals. Resume home dose Isosorbide. (8) Sepsis Qualifiers: Sepsis type: sepsis due to unspecified organism Sepsis acute organ dysfunction status: with acute organ dysfunction Severe sepsis acute organ dysfunction type: acute renal failure Acute renal failure type: unspecified Severe sepsis shock status: without septic shock Qualified Code(s): A41.9 - Sepsis, unspecified organism; R65.20 - Severe sepsis without septic shock; N17.9 - Acute kidney failure, unspecified Is this a current diagnosis for this admission?: Yes Plan: As in #1 Evidence of sepsis without identified source of infectious process. - Time Time Spent with patient: 25-34 minutes Medications reviewed and adjusted accordingly: Yes Anticipated discharge: SNF Within: within 48 hours
[2020-03-08 05:01] LABS: HEMATOCRIT 30.7 % (36.0-47.0); HEMOGLOBIN 10.4 g/dL (12.0-15.5); MEAN CORPUSCULAR HEMOGLOBIN 26.8 pg (27.0-33.4); MEAN CORPUSCULAR HGB CONC 33.8 g/dL (32.0-36.0); MEAN CORPUSCULAR VOLUME 80 fl (80-97); PLATELET COUNT 154 10^3/uL (150-450); RED BLOOD COUNT 3.86 10^6/uL (3.72-5.28); RED CELL DISTRIBUTION WIDTH 19.1 % (11.5-14.0); WHITE BLOOD COUNT 4.4 10^3/uL (4.0-10.5)
[2020-03-08 05:22] LABS: BLOOD UREA NITROGEN 13 mg/dL (7-20); CALCIUM 9.4 mg/dL (8.4-10.2); GLUCOSE 110 mg/dL (75-110); POTASSIUM 3.1 mmol/L (3.6-5.0)
[2020-03-08 05:27] LABS: ANION GAP 5 (5-19); CARBON DIOXIDE 29 mmol/L (22-30); CHLORIDE 102 mmol/L (98-107)
[2020-03-08] MEDS: CEFEPIME 1 GM/D5W RTU 1 GM/50 ML RTUPB IV SCH (05:35)
[2020-03-08] MEDS ORDERED: POTASSIUM CHLORIDE 10 MEQ TABLET.ER PO ONE (08:30)
[2020-03-08] MEDS: FAMOTIDINE 20 MG TABLET PO SCH ×2 (09:59→21:46)
[2020-03-08] MEDS: DOCUSATE SODIUM 100 MG CAPSULE PO SCH (09:59)
[2020-03-08] MEDS: ISOSORBIDE MONONITRATE 30 MG TAB.ER.24H PO SCH ×2 (09:59→21:46)
[2020-03-08] MEDS: APIXABAN 5 MG TABLET PO SCH ×2 (09:59→17:06)
[2020-03-08] MEDS: VENLAFAXINE HCL 75 MG TABLET PO SCH (09:59)
[2020-03-08] MEDS: NORMAL SALINE 1000 ML 1,000 ML IV PRN (11:46)
[2020-03-08] MEDS ORDERED: SIMETHICONE 80 MG TAB.CHEW PO PRN (12:18)
--- NOTE | 2020-03-08 12:31 | PDOC PROGRESS REPORT ---
Subjective Progress Note for:: 03/08/20 Subjective:: YUSRA LOVETT is a 79 year old female past medical history of atrial fibrillation anticoagulated, tobacco abuse, hypertension, dementia, who was admitted for SIRS and hyponatremia. Patient was seen on morning rounds. She was found sitting up to the recliner, comfortably, on room air. She tells me she is a little tired after working with physical therapy (ambulated ~400 feet) and asks for assistance back to bed. Other than rearrenging her IV tubing, the patient independently transferred from chair to bed with use of walker. She reports that she is feeling well and has no questions or concerns. She appears comfortable and has not noted to be in any acute distress. No concerns per nursing. Spoke with patient's son, Jj Lovett, by phone this afternoon. Discussed the patient clinical status and anticipated readiness for discharge tomorrow. He is hopeful that SW/Discharge Planning will be able to arrange for SNF placement. He had no other questions or concerns at this time. Reason For Visit: SEPSIS HYPERCALCEMIA HYPOTHERMIA Physical Exam Vital Signs: Temp Pulse Resp BP Pulse Ox 97.8 F 60 8 L 108/66 100 03/08/20 07:44 03/08/20 07:44 03/08/20 07:44 03/08/20 07:44 03/08/20 07:44 Intake & Output 03/07/20 03/08/20 03/09/20 06:59 06:59 06:59 Intake Total 8242 997 1170 Output Total 3425 1950 Balance -1547 -1040 1000 Weight 63.1 kg 65.7 kg General appearance: PRESENT: no acute distress, well-developed, well-nourished, other - frail Head exam: PRESENT: atraumatic, normocephalic Eye exam: PRESENT: conjunctiva pink, EOMI, PERRLA. ABSENT: scleral icterus Mouth exam: PRESENT: moist, tongue midline Respiratory exam: PRESENT: clear to auscultation leonardo, symmetrical, unlabored. ABSENT: rales, rhonchi, wheezes Cardiovascular exam: PRESENT: RRR, +S1, +S2. ABSENT: diastolic murmur, rubs, systolic murmur Vascular exam: PRESENT: normal capillary refill Extremities exam: PRESENT: full ROM. ABSENT: calf tenderness, clubbing, pedal edema Musculoskeletal exam: PRESENT: ambulatory - FWW Neurological exam: PRESENT: alert, awake, oriented to person, oriented to place, oriented to time - to year, CN II-XII grossly intact, other - Intermittent pleasant confusion. ABSENT: motor sensory deficit Psychiatric exam: PRESENT: appropriate affect, normal mood. ABSENT: homicidal ideation, suicidal ideation Skin exam: PRESENT: dry, intact, warm. ABSENT: cyanosis, rash Results Laboratory Results: 03/08/20 04:33 03/08/20 04:33 03/08/20 03/08/20 04:33 04:33 WBC 4.4 RBC 3.86 Hgb 10.4 L Hct 30.7 L MCV 80 MCH 26.8 L MCHC 33.8 RDW 19.1 H Plt Count 154 Sodium 135.6 L Potassium 3.1 L Chloride 102 Carbon Dioxide 29 Anion Gap 5 BUN 13 Creatinine 0.58 Est GFR ( Amer) > 60 Glucose 110 Calcium 9.4 03/05/20 15:40 Clean Catch Midstream Urine Culture - Final NO GROWTH 2 DAYS 03/05/20 03/05/20 15:10 16:19 Troponin I Cancelled 0.040 Impressions: Chest X-Ray 03/05/20 15:17 IMPRESSION: NO ACUTE RADIOGRAPHIC FINDING IN THE CHEST. Head CT 03/05/20 16:25 IMPRESSION: NO ACUTE INTRACRANIAL FINDINGS. EVIDENCE OF ACUTE STROKE: NO. Cervical Spine CT 03/05/20 16:26 IMPRESSION: CHRONIC DEGENERATIVE CHANGES. NO ACUTE FINDINGS. Renal Ultrasound 03/06/20 00:00 IMPRESSION: 1. NORMAL RENAL ULTRASOUND. 2. Li catheter within the urinary bladder. Assessment and Plan - Diagnosis (1) SIRS (systemic inflammatory response syndrome) Is this a current diagnosis for this admission?: Yes Plan: Resolved; vital signs have stabalized, leukocytosis and lactic acidosis have resolved, ARMANI is resolved Evidenced by hypothermia, hypotension, ARMANI, lactic acidosis. Urinalysis is negative. CXR benign Blood and urine cultures NGTD No clear infectious source Possibly related to poor nutrition/hydration resulting in hypoglycemia/ARMANI Aggressive volume resuscitation guided by volume status was provided. Have discontinued antibiotics (Normal WBC and afebrile x 3 days with negative cultures) Received 3 days [facility] (2) Hyponatremia Is this a current diagnosis for this admission?: Yes Plan: Trending up 129.7-> 132.5-> 135.6 Most likely chronic. No mental status changes. Hypovolemic hyponatremia. 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 Liberalize dietary sodium Follow up BMP Seizure precautions. (3) ARMANI (acute kidney injury) Is this a current diagnosis for this admission?: Yes Plan: Improved; Cr 1.58/BUN 51-> 0.85/27-> 0.58/13 Likely due to underlying SIRS/sepsis or hypercalcemia. Consider underlying CKD based on BUN that remains unchanged despite volume resuscitation. Renal ultrasound is normal. Volume resuscitation guided by volume status. Monitor electrolytes and replace as needed. (4) Atrial fibrillation Qualifiers: Atrial fibrillation type: longstanding persistent Qualified Code(s): I48.11 - Longstanding persistent atrial fibrillation Is this a current diagnosis for this admission?: Yes Plan: Rate controlled without beta or calcium channel blockers. Anticoagulated on Eliquis. Outpatient PCP and cardiology follow-up. (5) Failure to thrive Qualifiers: Failure to thrive age range: in adult Qualified Code(s): R62.7 - Adult failure to thrive Is this a current diagnosis for this admission?: Yes Plan: Consult registered dietitian. (6) Hypercalcemia Is this a current diagnosis for this admission?: Yes Plan: Resolved; Ca 11.4-> 10.5-> 10.1-> 9.6-> 9.4 Given history of tobacco abuse underlying malignancy is a consideration. Aggressive volume restriction guided by volume status. Zoledronic acid 1 dose. Admit to telemetry. Acute kidney injury; improving. PTH 156, PTrH pending, vitamin D level 44.4, LDH 144. Chest x-ray, CT head and CT neck negative for any lesions. (7) Hypertension Qualifiers: Hypertension type: essential hypertension Qualified Code(s): I10 - Essential (primary) hypertension Is this a current diagnosis for this admission?: Yes Plan: History of hypertension. Monitor vitals. Resume home dose Isosorbide. (8) Sepsis Qualifiers: Sepsis type: sepsis due to unspecified organism Sepsis acute organ dysfunction status: with acute organ dysfunction Severe sepsis acute organ dysfunction type: acute renal failure Acute renal failure type: unspecified Severe sepsis shock status: without septic shock Qualified Code(s): A41.9 - Sepsis, unspecified organism; R65.20 - Severe sepsis without septic shock; N17.9 - Acute kidney failure, unspecified Is this a current diagnosis for this admission?: Yes Plan: As in #1 Evidence of sepsis without identified source of infectious process. - Time Time Spent with patient: 25-34 minutes Medications reviewed and adjusted accordingly: Yes Anticipated discharge: Home with Homehealth - vs PENITENTIARY/SNF Within: within 24 hours
[2020-03-09 05:36] LABS: HEMATOCRIT 32.4 % (36.0-47.0); HEMOGLOBIN 10.7 g/dL (12.0-15.5); MEAN CORPUSCULAR HEMOGLOBIN 26.3 pg (27.0-33.4); MEAN CORPUSCULAR HGB CONC 32.9 g/dL (32.0-36.0); MEAN CORPUSCULAR VOLUME 80 fl (80-97); PLATELET COUNT 180 10^3/uL (150-450); RED BLOOD COUNT 4.06 10^6/uL (3.72-5.28); RED CELL DISTRIBUTION WIDTH 19.6 % (11.5-14.0); WHITE BLOOD COUNT 4.9 10^3/uL (4.0-10.5)
[2020-03-09 05:51] LABS: BLOOD UREA NITROGEN 8 mg/dL (7-20); CALCIUM 9.5 mg/dL (8.4-10.2); GLUCOSE 118 mg/dL (75-110); POTASSIUM 3.5 mmol/L (3.6-5.0)
[2020-03-09 05:56] LABS: ANION GAP 5 (5-19); CARBON DIOXIDE 28 mmol/L (22-30); CHLORIDE 103 mmol/L (98-107)
[2020-03-09] MEDS: DOCUSATE SODIUM 100 MG CAPSULE PO SCH (10:07)
[2020-03-09] MEDS: ISOSORBIDE MONONITRATE 30 MG TAB.ER.24H PO SCH (10:07)
[2020-03-09] MEDS: VENLAFAXINE HCL 75 MG TABLET PO SCH (10:07)
[2020-03-09] MEDS: FAMOTIDINE 20 MG TABLET PO SCH (10:07)
[2020-03-09] MEDS: APIXABAN 5 MG TABLET PO SCH (10:07)
[2020-03-09 10:32] VITALS: BP 113/60
--- NOTE | 2020-03-09 14:05 | PDOC DISCHARGE SUMMARY ---
Impression - Admit/DC Date/PCP Admission Date/Primary Care Provider: 03/05/20 18:22 Discharge Date: 03/09/20 - Discharge Diagnosis (1) SIRS (systemic inflammatory response syndrome) Is this a current diagnosis for this admission?: Yes (2) Hyponatremia Is this a current diagnosis for this admission?: Yes (3) ARMANI (acute kidney injury) Is this a current diagnosis for this admission?: Yes (4) Atrial fibrillation Is this a current diagnosis for this admission?: Yes (5) Failure to thrive Is this a current diagnosis for this admission?: Yes (6) Hypercalcemia Is this a current diagnosis for this admission?: Yes (7) Hypertension Is this a current diagnosis for this admission?: Yes (8) Sepsis Is this a current diagnosis for this admission?: Yes - Additional Information Discharge Diet: Regular Discharge Activity: Activity As Tolerated, Balance Activity w/Rest, Walk Frequently Referrals: AAKASH COLON III, MD [NO LOCAL MD] - 03/16/20 10:00 am () Prescriptions: Apixaban [Eliquis 2.5 mg Tablet] 2.5 mg PO BID #60 tablet Metformin HCl [Metformin HCl ER] 500 mg PO DAILY #30 Home Medications: Enalapril Maleate [Vasotec 2.5 mg Tablet] 2.5 mg PO Q12 03/05/20 Isosorbide Mononitrate [Imdur 30 mg Tablet.er] 30 mg PO Q12 03/05/20 Venlafaxine HCl 37.5 mg PO DAILY 03/05/20 Acetaminophen [Tylenol 325 mg Tablet] 650 mg PO Q4HP PRN tablet 03/09/20 Apixaban [Eliquis 2.5 mg Tablet] 2.5 mg PO BID #60 tablet 03/09/20 Docusate Sodium [Colace 100 mg Capsule] 100 mg PO DAILY capsule 03/09/20 Metformin HCl [Metformin HCl ER] 500 mg PO DAILY #30 03/09/20 History of Present Illiness History of Present Illness: Per H&P by Dr. Young: YUSRA LOVETT is a 79 year old female past medical history of atrial fibrillation anticoagulated, tobacco abuse, hypertension, dementia, who was brought to ED by her son who is not present at the room currently. Source of history is ED physician, chart review and patient herself. As per ED physician patient was brought to ED for concern about her rectal and falls and failure to thrive, patient lives by herself and family is concerned that she is not safe at home alone. Patient herself is very pleasant and cooperative with physical examination but unfortunately she has some dementia and does not provide much history, she is alert and oriented x2 she said that she is living alone and takes care of herself, she does cook for herself however for the last 6 months she has not had much because of low appetite, otherwise she denies any weight changes, headache, vision changes, dysphagia, odynophagia, shortness of breath, chest pain, orthopnea, paroxysmal nocturnal dyspnea, nausea, vomiting, abdominal pain, diarrhea, polyuria, polydipsia or any dysuria. On initial ED evaluation patient was noted to be hypothermic with significant leukocytosis and elevated lactic acid and ARMANI. Patient was started on broad- spectrum IV antibiotics and IV fluids and hospitalist consulted for admission. Given history of recurrent falls and being anticoagulated a CT head and neck was obtained which were both negative for any acute abnormalities. Hospital Course Hospital Course: (1) SIRS (systemic inflammatory response syndrome) Resolved; vital signs have stabalized, leukocytosis and lactic acidosis have resolved, ARMANI is resolved Evidenced by hypothermia, hypotension, ARMANI, lactic acidosis. Urinalysis is negative. CXR benign Blood and urine cultures NGTD No clear infectious source Possibly related to poor nutrition/hydration resulting in hypoglycemia/ARMANI Aggressive volume resuscitation guided by volume status was provided. Have discontinued antibiotics (Normal WBC and afebrile x 3 days with negative cultures) Received 3 days of Cefepime (2) Hyponatremia Resolved; 129.7-> 132.5-> 135.6 Most likely chronic. No mental status changes. Hypovolemic hyponatremia. 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 Liberalize dietary sodium Received gentle IVF. Monitored chemistry closely. Seizure precautions were put in place. (3) ARMANI (acute kidney injury) Resolved; Cr 1.58/BUN 51-> 0.85/27-> 0.58/13 Likely due to underlying SIRS/sepsis or hypercalcemia. Renal ultrasound is normal. Volume resuscitation was guided by volume status. (4) Atrial fibrillation Rate controlled without beta or calcium channel blockers. Anticoagulated on Eliquis. Outpatient PCP and cardiology follow-up. (5) Failure to thrive Consult registered dietitian. (6) Hypercalcemia Resolved; Ca 11.4-> 10.5-> 10.1-> 9.6-> 9.4 Given history of tobacco abuse underlying malignancy is a consideration. Aggressive volume restriction guided by volume status. Zoledronic acid 1 dose. Admit to telemetry. Acute kidney injury; improving. PTH 156, PTrH pending, vitamin D level 44.4, LDH 144. Chest x-ray, CT head and CT neck negative for any lesions. (7) Hypertension History of hypertension. Monitor vitals. Continue home dose Isosorbide. (8) Sepsis As in #1 Evidence of sepsis without identified source of infectious process. Physical Exam Vital Signs: Temp Pulse Resp BP Pulse Ox 98.1 F 71 18 113/60 100 03/09/20 10:27 03/09/20 10:27 03/09/20 10:27 03/09/20 10:27 03/09/20 10:27 Intake & Output 03/08/20 03/09/20 03/10/20 06:59 06:59 06:59 Intake Total 910 1500 Output Total 1950 1650 Balance -1040 -150 Weight 65.7 kg 66.5 kg General appearance: PRESENT: no acute distress, well-developed, well-nourished, other - frail Head exam: PRESENT: atraumatic, normocephalic Eye exam: PRESENT: conjunctiva pink, EOMI, PERRLA. ABSENT: scleral icterus Ear exam: PRESENT: normal external ear exam Mouth exam: PRESENT: moist, tongue midline Respiratory exam: PRESENT: clear to auscultation leonardo, symmetrical, unlabored. ABSENT: rales, rhonchi, wheezes Cardiovascular exam: PRESENT: RRR, +S1, +S2. ABSENT: diastolic murmur, rubs, systolic murmur Pulses: PRESENT: normal dorsalis pedis pul Vascular exam: PRESENT: normal capillary refill Extremities exam: PRESENT: full ROM. ABSENT: calf tenderness, clubbing, pedal e penny Musculoskeletal exam: PRESENT: ambulatory - 400' w/ FWW Neurological exam: PRESENT: alert, awake, oriented to person, oriented to place, oriented to time, oriented to situation, CN II-XII grossly intact, other - Intermittent pleasant confusion. ABSENT: motor sensory deficit Psychiatric exam: PRESENT: appropriate affect, normal mood. ABSENT: homicidal ideation, suicidal ideation Skin exam: PRESENT: dry, intact, warm. ABSENT: cyanosis, rash Results Laboratory Results: WBC 4.9 10^3/uL (4.0-10.5) 03/09/20 05:07 RBC 4.06 10^6/uL (3.72-5.28) 03/09/20 05:07 Hgb 10.7 g/dL (12.0-15.5) L 03/09/20 05:07 Hct 32.4 % (36.0-47.0) L 03/09/20 05:07 MCV 80 fl (80-97) 03/09/20 05:07 MCH 26.3 pg (27.0-33.4) L 03/09/20 05:07 MCHC 32.9 g/dL (32.0-36.0) 03/09/20 05:07 RDW 19.6 % (11.5-14.0) H 03/09/20 05:07 Plt Count 180 10^3/uL (150-450) 03/09/20 05:07 Lymph % (Auto) 24.2 % (13-45) 03/06/20 05:03 [place] % (Auto) 9.1 % (3-13) 03/06/20 05:03 Eos % (Auto) 1.0 % (0-6) 03/06/20 05:03 Baso % (Auto) 0.5 % (0-2) 03/06/20 05:03 Absolute Neuts (auto) 4.7 10^3/uL (1.7-8.2) 03/06/20 05:03 Absolute Lymphs (auto) 1.7 10^3/uL (0.5-4.7) 03/06/20 05:03 Absolute Monos (auto) 0.6 10^3/uL (0.1-1.4) 03/06/20 05:03 Absolute Eos (auto) 0.1 10^3/uL (0.0-0.6) 03/06/20 05:03 Absolute Basos (auto) 0.0 10^3/uL (0.0-0.2) 03/06/20 05:03 Seg Neutrophils % 65.2 % (42-78) 03/06/20 05:03 PT 37.7 SEC (11.4-15.4) H 03/05/20 16:00 INR 3.71 03/05/20 16:00 INR (Anticoag Therapy) Cancelled 03/05/20 15:10 VBG pH 7.31 (7.30-7.42) 03/05/20 15:10 VBG pCO2 35.7 mmHg (35-63) 03/05/20 15:10 VBG HCO3 17.6 mmol/L (20-32) L 03/05/20 15:10 VBG Base Excess -7.8 mmol/L 03/05/20 15:10 Sodium 136.1 mmol/L (137-145) L 03/09/20 05:07 Potassium 3.5 mmol/L (3.6-5.0) L 03/09/20 05:07 Chloride 103 mmol/L (98-107) 03/09/20 05:07 Carbon Dioxide 28 mmol/L (22-30) 03/09/20 05:07 Anion Gap 5 (5-19) 03/09/20 05:07 BUN 8 mg/dL (7-20) 03/09/20 05:07 Creatinine 0.58 mg/dL (0.52-1.25) 03/09/20 05:07 Est GFR ( Amer) > 60 (>60) 03/09/20 05:07 Est GFR (MDRD) Non-Af > 60 (>60) 03/09/20 05:07 Glucose 118 mg/dL (75-110) H 03/09/20 05:07 POC Glucose 242 mg/dL (70-110) H 03/05/20 15:32 Hemoglobin A1c % 7.4 % (4.7-6.0) H 03/05/20 15:10 Lactic Acid 0.9 mmol/L (0.7-2.1) 03/07/20 05:49 Calcium 9.5 mg/dL (8.4-10.2) 03/09/20 05:07 Total Bilirubin 1.1 mg/dL (0.2-1.3) 03/05/20 15:10 Direct Bilirubin 0.5 mg/dL (0.0-0.4) H 03/05/20 15:10 Neonat Total Bilirubin Not Reportable 03/05/20 15:10 Neonat Direct Bilirubin Not Reportable 03/05/20 15:10 Neonat Indirect Bili Not Reportable 03/05/20 15:10 AST 35 U/L (14-36) 03/05/20 15:10 ALT 26 U/L (<35) 03/05/20 15:10 Alkaline Phosphatase 90 U/L (38-126) 03/05/20 15:10 Lactate Dehydrogenase 144 U/L (120-246) 03/05/20 18:35 Troponin I 0.040 ng/mL 03/05/20 16:19 Total Protein 7.4 g/dL (6.3-8.2) 03/05/20 15:10 Albumin 4.6 g/dL (3.5-5.0) 03/05/20 15:10 Vitamin D 25-Hydroxy 44.4 ng/mL (14.7-68.3) 03/05/20 18:35 PTH Intact 156.0 pg/mL (10.0-65.0) H 03/05/20 22:25 Urine Color YELLOW 03/05/20 15:40 Urine Appearance CLEAR 03/05/20 15:40 Urine pH 5.0 (5.0-9.0) 03/05/20 15:40 Ur Specific [place] 1.013 03/05/20 15:40 Urine Protein NEGATIVE mg/dL (NEGATIVE) 03/05/20 15:40 Urine Glucose (UA) NEGATIVE mg/dL (NEGATIVE) 03/05/20 15:40 Urine Ketones TRACE mg/dL (NEGATIVE) H 03/05/20 15:40 Urine Blood NEGATIVE (NEGATIVE) 03/05/20 15:40 Urine Nitrite NEGATIVE (NEGATIVE) 03/05/20 15:40 Urine Bilirubin NEGATIVE (NEGATIVE) 03/05/20 15:40 Urine Urobilinogen NEGATIVE mg/dL (<2.0) 03/05/20 15:40 Ur Leukocyte Esterase NEGATIVE (NEGATIVE) 03/05/20 15:40 Urine WBC (Auto) 0 /HPF 03/05/20 15:40 Urine RBC (Auto) 1 /HPF 03/05/20 15:40 U Hyaline Cast (Auto) 5 /LPF 03/05/20 15:40 Squamous Epi Cells Auto <1 /HPF 03/05/20 15:40 Urine Mucus (Auto) RARE /LPF 03/05/20 15:40 Urine Creatinine 68.4 mg/dL (15-278) 03/05/20 15:40 Urine Sodium 16 mmol/L (30-90) L 03/05/20 15:40 Urine Ascorbic Acid NEGATIVE (NEGATIVE) 03/05/20 15:40 03/05/20 03/05/20 15:10 16:19 Troponin I Cancelled 0.040 Impressions: Chest X-Ray 03/05/20 15:17 IMPRESSION: NO ACUTE RADIOGRAPHIC FINDING IN THE CHEST. Head CT 03/05/20 16:25 IMPRESSION: NO ACUTE INTRACRANIAL FINDINGS. EVIDENCE OF ACUTE STROKE: NO. Cervical Spine CT 03/05/20 16:26 IMPRESSION: CHRONIC DEGENERATIVE CHANGES. NO ACUTE FINDINGS. Renal Ultrasound 03/06/20 00:00 IMPRESSION: 1. NORMAL RENAL ULTRASOUND. 2. Li catheter within the urinary bladder. Plan Plan of Treatment: Patient is discharged home in stable condition, to the care of family moved, with home health services. She is recommended to follow-up with her primary care provider within 1 week. Strongly encouraged to continue to work with her PCP to make arrangements for long-term living (SNF versus [facility]). She is advised to take her medications as prescribed. Her Eliquis dose has been reduced due to her body weight, frailty, and fall risk. I also advised that she hold her furosemide until follow-up with her primary care provider due to dehydration being the primary concern upon admission. We discussed the importance of her eating small frequent meals throughout the day; recommended that she eat small snacks rather than 3 large meals as she has a poor appetite and frequently skips meals. She is advised to return to the emergency department as needed for concerning symptoms. Time Spent: Greater than 30 Minutes Stroke Is this a Stroke Patient?: No Acute Heart Failure - Is this a Heart Failure Patient?: No
== END 2020-03-09 11:40 | disposition home health service (06) | DRG 872 ==
LOC: ER 15:16 → EH 18:22 → 3N 21:40
PROVIDERS: ADMIT Internal Medicine; ATTEND Registered Nurse
DX: A41.9 Sepsis, unspecified organism (principal); N17.9 Acute kidney failure, unspecified; E87.1 Hypo-osmolality and hyponatremia; I48.11 Longstanding persistent atrial fibrillation; F03.90 Unspecified dementia, unspecified severity, without behavioral disturbance, psychotic disturbance, mood disturbance, and anxiety; R29.6 Repeated falls; I10 Essential (primary) hypertension; R65.20 Severe sepsis without septic shock; R62.7 Adult failure to thrive; Z60.2 Problems related to living alone; E83.52 Hypercalcemia; Z87.891 Personal history of nicotine dependence; Z88.2 Allergy status to sulfonamides; Z79.01 Long term (current) use of anticoagulants; Z79.84 Long term (current) use of oral hypoglycemic drugs
CPT/HCPCS: 36415; 51701; 70450; 71045; 72125; 76770; 80048; 80053; 81001; 82306; 82397; 82570; 82803; 82962; 83036; 83605; 83615; 83970; 84300; 84484; 85025; 85027; 85610; 87040; 87086; 93005; 93010; 96361; 96374; 99285; J0692; J7030; J7120

== ENCOUNTER 2020-04-20 20:31 | Emergency (ER) | payer MEDICARE ==
--- NOTE | 2020-04-20 22:02 | EKG REPORT ---
SEVERITY:- ABNORMAL ECG - ATRIAL FIBRILLATION LEFT ANTERIOR FASCICULAR BLOCK BORDERLINE T ABNORMALITIES, ANT-LAT LEADS : Confirmed by: Josefa Herrera MD 20-Apr-2020 22:01:54
--- NOTE | 2020-04-20 22:28 | ER Document Report ---
ED General <CAROLANN SULLIVAN - Last Filed: 04/22/20 16:13> <EDMUNDO BRUNSON IV - Last Filed: 04/24/20 06:47> - General Chief Complaint: Altered Mental Status Stated Complaint: WORSENING DEMENTIA - HPI Notes: 79F h/o htn dm afib on eliquis depression presents with fall. Patient's daughter says that when they went to see patient in the house she lives and behind her son that patient was in a chair that was tipped over onto the floor, they did not know how long she had been in apposition. She has also been recently hallucinating and seeming to talk to family members were not present. Daughter says that the symptoms have been gradually worsening over a period of years and now she is concerned the patient is not safe at home. Patient has had prior incidents where she has seemed confused, hallucinating, and had an episode where she took an accidental overdose of her medications. In speaking to patient patient says she feels completely well. When asked about a fall she says that she fell once a few years ago and that she had to be hospitalized but seems to have no recollection of being on the ground just prior to arrival. P atient denies having any headache, neck or back pain, chest pain, abdominal pain, recent fevers, urinary or GI symptoms, change in her medications. (CAROLANN SULLIVAN) - Related Data Allergies/Adverse Reactions: Sulfa (Sulfonamide Antibiotics) Allergy (Verified 04/21/20 02:57) Past Medical History - General Information source: Patient, Relative, [facility] Records - Social History Smoking Status: Never Smoker Frequency of alcohol use: None Drug Abuse: None Family History: Reviewed & Not Pertinent Patient has homicidal ideation: No - Past Medical History Cardiac Medical History: Reports: Hx Atrial Fibrillation Psychiatric Medical History: Reports: Hx Depression <SULLIVAN,CAROLANN Fariba - Last Filed: 04/22/20 16:13> - Social History Smoking Status: Never Smoker Family History: Reviewed & Not Pertinent <EDMUNDO BRUNSON IV - Last Filed: 04/24/20 06:47> Review of Systems <SULLIVANCAROLANN - Last Filed: 04/22/20 16:13> - Review of Systems -: Yes ROS unobtainable due to patient's medical condition <EDMUNDO BRUNSON IV - Last Filed: 04/24/20 06:47> - Review of Systems Notes: REVIEW OF SYSTEMS: CONSTITUTIONAL : Denies fever, chills, or sweats. EENT: Denies recent cold/sinus symptoms, denies throat pain CARDIOVASCULAR: Denies chest pain, MEGHAN RESPIRATORY: Denies cough, denies shortness of breath. GASTROINTESTINAL: Denies abdominal pain, nausea/vomiting. GENITOURINARY: Denies difficulty urinating, painful urination. FEMALE GENITOURINARY: Denies abnormal vaginal bleeding, vaginal discharge. MUSCULOSKELETAL: Denies neck pain, back pain. SKIN: Denies rash or skin lesions. HEMATOLOGIC : Denies easy bruising or bleeding. LYMPHATIC: Denies swollen, enlarged glands. NEUROLOGICAL: Denies headache, denies change in gait. PSYCHIATRIC: Denies anxiety or stress or depression. (CAROLANN SULLIVAN) Physical Exam <CAROLANN SULLIVAN - Last Filed: 04/22/20 16:13> <EDMUNDO BRUNSON IV - Last Filed: 04/24/20 06:47> - Vital signs Vitals: Temp Pulse Resp BP Pulse Ox 98.4 F 68 16 126/68 H 100 04/20/20 21:09 04/20/20 21:09 04/20/20 21:09 04/20/20 21:09 04/20/20 21:09 - Notes Notes: PHYSICAL EXAMINATION: GENERAL: Well-appearing, well-nourished, well-kempt elderly woman appearing younger than stated age with no visible signs of discomfort HEAD: Atraumatic, normocephalic. EYES: Pupils equal round and appropriate constriction, sclera anicteric, conjunctiva are normal. ENT: nares patent, moist mucous membranes. NECK: Normal range of motion, supple without lymphadenopathy BACK: No C/T/L/S spinal tenderness or midline deformity LUNGS: Breath sounds clear to auscultation bilaterally and equal. No wheezes rales or rhonchi. HEART: Regular rate and rhythm without murmurs ABDOMEN: Soft, nontender, no guarding, no masses, no CVAT EXTREMITIES: Normal range of motion, no pitting or edema. No cyanosis. Had pat ient fully undressed and performed head to toe trauma examination with no findings of trauma and no bony tenderness NEUROLOGICAL: Awake, alert, conversing appropriately for known dementia history, moves all extremities spontaneously. PSYCH: Normal mood, normal affect. SKIN: Warm, Dry, normal turgor, no rashes or lesions noted. (CAROLANN SULLIVAN) - Skin Notes: + scalp laceration, see procedure note (EDMUNDO BRUNSON IV) Course - Laboratory Result Diagrams: 04/21/20 04:30 04/20/20 22:20 <CAROLANN SULLIVAN - Last Filed: 04/22/20 16:13> - Laboratory Result Diagrams: 04/21/20 04:30 04/20/20 22:20 <EDMUNDO BRUNSON IV - Last Filed: 04/24/20 06:47> - Re-evaluation Re-evalutation: 04/20/20 23:51 Very well-appearing elderly woman with no signs of trauma. Awake and alert and conversive and able to hold engage in conversation. No signs of trauma on head to toe fully undressed examination. Concerned that patient was down for unknown amount of time and possible occult trauma on Eliquis. Obtain CT head chest x- ray and pelvis films. Will evaluate for symptomatic anemia, electrolyte abnormalities, occult infection, UTI, ACS, rhabdo. If patient not found to have any acute medical needs will put patient on social hold and request social work eval during the day. Patient appears not to be safe to live at home anymore and will need placement. 04/21/20 06:25 Patient medically cleared. Patient's hemoglobin was decreased from the last time it was measured but patient has no signs of active bleeding, performed rectal exam which showed no no blood in vault and scant slight brown stool which was guaiac negative at bedside. Given history from patient limited I obtained a CBC 6 hours after initial CBC which showed a stable hemoglobin. Patient continues to feel well, no signs of acute bleeding. Patient's carboxyhemoglobin level was slightly elevated which given that it was obtained several hours after she was taken out of her house may show that she had carbon monoxide toxicity contributing to her symptoms prior to arrival. Social work will need to obtain placement for patient and in the case that they deem her appropriate to return home the safety of her home needs to be assessed first. Patient's care turned over to Dr. Pinzon pending social work evaluation. (CAROLANN SULLIVAN) 04/21/20 20:23 This MD arrived for the 8 PM shift and had this patient checked out to me by Dr. stephen. Apparently the patient had just fallen from a standing position in her room approximately within the 30-minute period prior to my arrival. Patient is laying in bed on her back in a cervical spine collar and CTs of the head and C-spine have been ordered. Patient does not appear to be bleeding substantially from her head lack however this MD is unable to visualize it given the position the patient has an. Plan: Wait for results of head CT and C-spine CT. If imaging is unremarkable will remove c-collar from patient in have assistance with turning her on her side the laceration can be visualized and repaired. 04/21/20 21:[address] Results of repeat head CT and C-spine CT showed no evidence of acute trauma. (EDMUNDO BRUNSON IV) - Vital Signs Vital signs: Temp Pulse Resp BP Pulse Ox 98.2 F 76 18 141/78 H 96 04/24/20 04:00 04/24/20 04:00 04/24/20 04:00 04/24/20 04:00 04/24/20 04:00 - Laboratory Laboratory results interpreted by me: 04/20/20 04/20/20 04/20/20 22:20 22:20 22:20 RBC 3.56 L Hgb 9.2 L Hct 29.1 L MCH 25.8 L MCHC 31.7 L RDW 19.2 H Lymph % (Auto) 11.9 L PT Carboxyhemoglobin Sodium 136.6 L Anion Gap 3 L Glucose 165 H POC Glucose Total Protein 6.1 L TSH 4.90 H Urine Protein Urine Ketones Leukocyte Esterase Rfl Urine Ascorbic Acid 04/20/20 04/20/20 04/21/20 22:20 23:10 00:05 RBC Hgb Hct MCH MCHC RDW Lymph % (Auto) PT 16.3 H Carboxyhemoglobin 2.2 H Sodium Anion Gap Glucose POC Glucose Total Protein TSH Urine Protein 30 H Urine Ketones TRACE H Leukocyte Esterase Rfl LARGE H Urine Ascorbic Acid 40 H 04/21/20 04/22/20 04/23/20 04:30 23:27 08:45 RBC 3.46 L Hgb 9.1 L Hct 28.3 L MCH 26.3 L MCHC RDW 18.8 H Lymph % (Auto) 11.1 L PT Carboxyhemoglobin Sodium Anion Gap Glucose POC Glucose 236 H 227 H Total Protein TSH Urine Protein Urine Ketones Leukocyte Esterase Rfl Urine Ascorbic Acid 04/23/20 04/23/20 04/23/20 12:05 16:28 21:49 RBC Hgb Hct MCH MCHC RDW Lymph % (Auto) PT Carboxyhemoglobin Sodium Anion Gap Glucose POC Glucose 218 H 247 H 198 H Total Protein TSH Urine Protein Urine Ketones Leukocyte Esterase Rfl Urine Ascorbic Acid - EKG Interpretation by Me Additional EKG results interpreted by me: 04/20/20 22:27 163, atrial fibrillation with normal ventricular response, no significant ST elevations or depressions, no significant T wave abnormalities (CAROLANN SULLIVAN) Procedures - Laceration/Wound Repair Head Time completed: 09:09 - Laceration present in mid superior occipital region Wound length (cm): 2 Wound's Depth, Shape: Linear, Other - Macerated tissue Laceration pre-procedure: Sterile PPE donned, Betadine prep applied Anesthetic type: 2% Lidocaine Volume Anesthetic (mLs): 5 Wound explored: Clean Irrigated w/ Saline (mLs): 20 Wound Debrided: Minimal Wound Repaired With: Shine - 8 shine Layer Closure?: No Post-procedure NV exam normal: Yes Complications: No <EDMUNDO BRUNSON IV - Last Filed: 04/24/20 06:47> Discharge <CAROLANN SULLIVAN - Last Filed: 04/22/20 16:13> <EDMUNDO BRUNSON IV - Last Filed: 04/24/20 06:47> - Discharge Clinical Impression: Dementia Qualifiers: Dementia type: unspecified type Dementia behavioral disturbance: without behavioral disturbance Qualified Code(s): F03.90 - Unspecified dementia without behavioral disturbance Fall Qualifiers: Encounter type: initial encounter Qualified Code(s): W19.XXXA - Unspecified fall, initial encounter Scalp laceration Qualifiers: Encounter type: initial encounter Qualified Code(s): S01.01XA - Laceration without foreign body of scalp, initial encounter Disposition: OTHER
--- NOTE | 2020-04-20 22:42 | RADIOLOGY REPORT (SQ) ---
CLINICAL INDICATION: ams. No other history provided. TECHNIQUE: Single view(s) obtained of the pelvis. COMPARISON: None. FINDINGS: No acute displaced fracture is identified. Alignment appears anatomic. Osteoarthritis. Remote postsurgical change left femur. Calcified myomata. IMPRESSION: No acute displaced fracture is identified.
--- NOTE | 2020-04-20 22:42 | RADIOLOGY REPORT (SQ) ---
EXAM DESCRIPTION: XR CHEST 1 VIEW COMPLETED DATE/TME: 04/20/2020 21:42 CLINICAL HISTORY: 79 years, Female, ams COMPARISON: Multiple priors, most recent from 03/05/2020 NUMBER OF VIEWS: One TECHNIQUE: Single frontal view of the chest was obtained portably LIMITATIONS: None. FINDINGS: Cardiac and mediastinal contours are stable. Left hemidiaphragm is slightly tented, indicating some degree of atelectasis. Right lung is overall clear. No pneumothorax or large pleural effusion. IMPRESSION: Left basilar atelectasis. Otherwise, clear lungs. copyright 2010 [employer]- All Rights Reserved
[2020-04-20 22:43] LABS: ABSOLUTE EOSINOPHILS # (AUTO) 0.1 10^3/uL (0.0-0.6); ABSOLUTE LYMPHOCYTES (AUTO) 0.7 10^3/uL (0.5-4.7); ABSOLUTE MONOCYTES (AUTO) 0.6 10^3/uL (0.1-1.4); ABSOLUTE NEUT (AUTO) 4.3 10^3/uL (1.7-8.2); BASOPHILS % (AUTO) 0.4 % (0-2); EOSINOPHILS % (AUTO) 1.5 % (0-6); HEMATOCRIT 29.1 % (36.0-47.0); HEMOGLOBIN 9.2 g/dL (12.0-15.5); LYMPHOCYTES % (AUTO) 11.9 % (13-45); MEAN CORPUSCULAR HEMOGLOBIN 25.8 pg (27.0-33.4); MEAN CORPUSCULAR HGB CONC 31.7 g/dL (32.0-36.0); MEAN CORPUSCULAR VOLUME 82 fl (80-97); MONOCYTES % (AUTO) 11.3 % (3-13); PLATELET COUNT 222 10^3/uL (150-450); RED BLOOD COUNT 3.56 10^6/uL (3.72-5.28); RED CELL DISTRIBUTION WIDTH 19.2 % (11.5-14.0); SEGMENTED NEUTROPHILS % (AUTO) 74.9 % (42-78); TOTAL CELLS COUNTED % (AUTO) 100 %; WHITE BLOOD COUNT 5.7 10^3/uL (4.0-10.5)
--- NOTE | 2020-04-20 22:45 | RADIOLOGY REPORT (SQ) ---
INDICATION: ams. COMPARISON: March 05, 2020 CORRELATION: None TECHNIQUE: Noncontrast spiral axial CT images were obtained from the skull base to vertex. This exam was performed according to our departmental dose-optimization program, which includes automated exposure control, adjustment of the mA and/or kV according to patient size and/or use of iterative reconstruction techniques. FINDINGS: There is no evidence of acute intracranial hemorrhage, midline shift, mass effect or mass lesion. Valladares-white differentiation is normal. There is no evidence of acute large territory infarct. Ventricles and extracerebral spaces are within normal limits, for age. Significant vascular calcification The visualized paranasal sinuses are grossly clear. The orbits and eyeballs are unremarkable. The mastoid air cells are clear. Skull base and calvarium appear intact. IMPRESSION: No acute intracranial process is identified. Age-related involutional changes are identified. Presumed old small vessel ischemic changes are seen predominantly in a periventricular distribution. The cause of the patient's mental status change is not identified on this examination.
[2020-04-20 22:56] LABS: ALBUMIN 3.7 g/dL (3.5-5.0); ALKALINE PHOSPHATASE 72 U/L (38-126); ASPARTATE AMINO TRANSFERASE 24 U/L (14-36); BILIRUBIN,TOTAL 0.6 mg/dL (0.2-1.3); BLOOD UREA NITROGEN 12 mg/dL (7-20); CALCIUM 9.2 mg/dL (8.4-10.2); CARBON DIOXIDE 28 mmol/L (22-30); CHLORIDE 106 mmol/L (98-107); CREATINE KINASE 61 U/L (30-135); GLUCOSE 165 mg/dL (75-110); TOTAL PROTEIN 6.1 g/dL (6.3-8.2)
[2020-04-20 23:03] LABS: ANION GAP 3 (5-19)
[2020-04-20 23:28] LABS: PROTHROMBIN TIME 16.3 SEC (11.4-15.4)
[2020-04-20 23:29] LABS: PARTIAL THROMBOPLASTIN TIME 35.1 SEC (23.5-35.8)
[2020-04-20 23:42] LABS: APPEARANCE,URINE SLIGHTLY-CLOUDY; BILIRUBIN,URINE NEGATIVE (NEGATIVE); COLOR,URINE YELLOW; GLUCOSE, URINE NEGATIVE (NEGATIVE); KETONES,URINE TRACE mg/dL (NEGATIVE); PROTEIN,URINE 30 mg/dL (NEGATIVE); URINE SPECIFIC GRAVITY 1.014; UROBILINOGEN,URINE NEGATIVE mg/dL (<2.0)
[2020-04-21] MEDS: CEPHALEXIN 500 MG CAPSULE PO SCH ×3 (04:21→17:44)
[2020-04-21 04:57] LABS: ABSOLUTE EOSINOPHILS # (AUTO) 0.1 10^3/uL (0.0-0.6); ABSOLUTE LYMPHOCYTES (AUTO) 0.7 10^3/uL (0.5-4.7); ABSOLUTE MONOCYTES (AUTO) 0.6 10^3/uL (0.1-1.4); ABSOLUTE NEUT (AUTO) 4.7 10^3/uL (1.7-8.2); BASOPHILS % (AUTO) 0.6 % (0-2); EOSINOPHILS % (AUTO) 1.5 % (0-6); HEMATOCRIT 28.3 % (36.0-47.0); HEMOGLOBIN 9.1 g/dL (12.0-15.5); LYMPHOCYTES % (AUTO) 11.1 % (13-45); MEAN CORPUSCULAR HEMOGLOBIN 26.3 pg (27.0-33.4); MEAN CORPUSCULAR HGB CONC 32.1 g/dL (32.0-36.0); MEAN CORPUSCULAR VOLUME 82 fl (80-97); MONOCYTES % (AUTO) 10.2 % (3-13); PLATELET COUNT 218 10^3/uL (150-450); RED BLOOD COUNT 3.46 10^6/uL (3.72-5.28); RED CELL DISTRIBUTION WIDTH 18.8 % (11.5-14.0); SEGMENTED NEUTROPHILS % (AUTO) 76.6 % (42-78); TOTAL CELLS COUNTED % (AUTO) 100 %; WHITE BLOOD COUNT 6.1 10^3/uL (4.0-10.5)
[2020-04-21] MEDS ORDERED: LEVOTHYROXINE SODIUM 0.025 MG TABLET PO ONE (17:32)
[2020-04-21] MEDS ORDERED: LIDOCAINE 1%/EPINEPHRINE INJ 20 ML VIAL INJ ONE (19:56)
--- NOTE | 2020-04-21 20:26 | RADIOLOGY REPORT (SQ) ---
EXAM DESCRIPTION: [facility]: CT CERVICAL SPINE WITHOUT IV CONTRAST CLINICAL HISTORY: 79 years Female; fall neck pain; TECHNIQUE: Noncontrast cervical spine CT with sagittal and coronal reconstructions. All CT scans at this facility use dose modulation, iterative reconstruction, and/or weight based dosing when appropriate to reduce radiation dose to as low as reasonably achievable. COMPARISON: 10/24/2016 FINDINGS: Alignment is anatomic. Mild multilevel facet arthropathy and disc disease is similar to prior exam. No prevertebral edema. There is no acute fracture of the cervical spine. No epidural hematoma. IMPRESSION: 1. No acute cervical spine fracture or subluxation.
--- NOTE | 2020-04-21 20:27 | RADIOLOGY REPORT (SQ) ---
EXAM DESCRIPTION: [facility]: CT HEAD WITHOUT IV CONTRAST CLINICAL HISTORY: 79 years Female; fall head strike; TECHNIQUE: Noncontrast CT head. All CT scans at this facility use dose modulation, iterative reconstruction, and/or weight based dosing when appropriate to reduce radiation dose to as low as reasonably achievable. COMPARISON: 04/20/2020 FINDINGS: Diffuse cerebral atrophy is similar prior exam. There are mild hypodense chronic ischemic changes in the cerebral white matter. Ventricles and cisterns are preserved. No acute hemorrhage. Visualized portions of paranasal sinuses and mastoids are clear. There is a localized right occipital scalp contusion. No acute calvarial fractures. IMPRESSION: 1. No acute intracranial findings. 2. Cerebral atrophy and mild chronic ischemic changes as on prior exam. 3. Occipital scalp contusion.
[2020-04-21] MEDS ORDERED: LIDOCAINE 2%/EPINEPHRINE INJ 20 ML VIAL INJ ONE (20:28)
[2020-04-21] MEDS ORDERED: ACETAMINOPHEN 325 MG TABLET PO ONE (21:29)
[2020-04-22] MEDS ORDERED: ACETAMINOPHEN 325 MG TABLET PO ONE ×2 (08:36→22:22)
[2020-04-22] MEDS: CEPHALEXIN 500 MG CAPSULE PO SCH ×2 (10:46→19:16)
--- NOTE | 2020-04-22 17:32 | ER Document Report ---
Doctor's Note Notes: 04/22/20 17:25 Aside from complaining of back pain after laying in the bed which she states is unchanged and complaining of mild headache around the area where her shine are patient has no further complaints. Patient was evaluated by physical therapy today, they did find that she is a significant fall risk. I am awaiting their official report. Ms. Ana Maria Salinas apparently has the report and is faxing it to various agencies to help with discharge planning. GENERAL: Alert, interacts well. No acute distress. HEAD: Well approximated non-bleeding stapled laceration to the posterior occiput. Nontender to palpation. EYES: Pupils equal, round and reactive to light, extraocular movements intact. ENT: Oral mucosa moist, tongue midline. NECK: Full range of motion, supple, trachea midline. LUNGS: Clear to auscultation bilaterally, no wheezing, rales or rhonchi. Heartregular rate and rhythm no murmurs gallops or rubs Abdomensoft, nontender, nondistended, bowel sounds present in all 4 quadrants EXTREMITIES: Moves all 4 extremities spontaneously, no edema. No cyanosis. No acute needs at this time, I continue to await feedback from discharge planning and from PT OT.
[2020-04-22] MEDS ORDERED: APIXABAN 2.5 MG TABLET PO ONE (23:15)
[2020-04-22] MEDS ORDERED: ENALAPRIL MALEATE 2.5 MG TABLET PO ONE (23:15)
[2020-04-22] MEDS ORDERED: ISOSORBIDE MONONITRATE 30 MG TAB.ER.24H PO ONE (23:15)
[2020-04-22] MEDS: ENALAPRIL MALEATE 2.5 MG TABLET ONE ×2 (23:32→23:34)
[2020-04-23] MEDS: FUROSEMIDE 40 MG TABLET PO SCH (08:43)
[2020-04-23] MEDS: ENALAPRIL MALEATE 2.5 MG TABLET PO SCH ×2 (10:40→21:45)
[2020-04-23] MEDS: METFORMIN HCL 500 MG TABLET PO SCH (10:41)
[2020-04-23] MEDS: ISOSORBIDE MONONITRATE 30 MG TAB.ER.24H PO SCH ×2 (10:41→21:45)
[2020-04-23] MEDS: DILTIAZEM HCL 120 MG CAP.SR.24H PO SCH (10:41)
[2020-04-23] MEDS: APIXABAN 2.5 MG TABLET PO SCH ×2 (10:42→18:08)
[2020-04-23] MEDS: CEPHALEXIN 500 MG CAPSULE PO SCH ×2 (10:42→18:08)
[2020-04-23] MEDS ORDERED: ACETAMINOPHEN 325 MG TABLET PO ONE (14:21)
--- NOTE | 2020-04-23 19:14 | ER Document Report ---
Doctor's Note Notes: 04/23/20 19:12 Patient did complain of headache earlier today. No neurologic deficits associated with it. Patient was given acetaminophen 650 mg by mouth once. Patient currently states headache is resolved. Denies any pain, states her back pain has improved with getting up and sitting in the chair. No requests at this time. GENERAL: Alert, pleasant, sitting up in the chair beside the bed watching TV. No acute distress. HEAD: Well approximated stapled laceration to the posterior occiput. [place] will need to come out on the fifth. EYES: Pupils equal, round and reactive to light, extraocular movements intact. ENT: Oral mucosa moist, tongue midline. NECK: Full range of motion, supple, trachea midline. LUNGS: no respiratory distress. Clear to auscultation bilaterally, no wheezes, rales or rhonchi. Heartregular rate and rhythm, no murmurs, gallops or rubs. Abdomensoft, nontender, nondistended, bowel sounds present in all 4 quadrants. EXTREMITIES: Moves all 4 extremities spontaneously, no edema. No cyanosis. PSYCH: Normal mood, normal affect. SKIN: Warm, Dry, normal turgor. Continue to await further recommendations from PT OT and discharge planning on this patient who has had multiple falls at home and there is concerned that she may not be able to care for herself at home.
[2020-04-23] MEDS ORDERED: ENALAPRIL MALEATE 10 MG TABLET ONE (21:37)
[2020-04-24] MEDS: FUROSEMIDE 40 MG TABLET PO SCH (08:13)
--- NOTE | 2020-04-24 10:18 | ER Document Report ---
Doctor's Note Notes: 04/24/20 10:16 SOCIAL HOLD NOTE Elderly female living at home alone with history of chronic atrial fibrillation subject to recurrent falls now remains on social hold in the emergency department waiting placement. Vital signs are stable. Patient has no complaints at this time. Cardiac rhythm is irregularly irregular. Chest is clear. No peripheral edema. Discharge planning team continues to manage placement issues.
[2020-04-24] MEDS: CEPHALEXIN 500 MG CAPSULE PO SCH ×2 (10:39→18:36)
[2020-04-24] MEDS: METFORMIN HCL 500 MG TABLET PO SCH (10:40)
[2020-04-24] MEDS: DILTIAZEM HCL 120 MG CAP.SR.24H PO SCH (10:41)
[2020-04-24] MEDS: APIXABAN 2.5 MG TABLET PO SCH ×2 (10:41→18:36)
[2020-04-24] MEDS: ENALAPRIL MALEATE 2.5 MG TABLET PO SCH ×2 (10:41→21:31)
[2020-04-24] MEDS: ISOSORBIDE MONONITRATE 30 MG TAB.ER.24H PO SCH ×2 (10:43→21:31)
[2020-04-24] MEDS: ACETAMINOPHEN 325 MG TABLET PO PRN (17:33)
[2020-04-25] MEDS: ACETAMINOPHEN 325 MG TABLET PO PRN (02:44)
[2020-04-25] MEDS: FUROSEMIDE 40 MG TABLET PO SCH (08:26)
--- NOTE | 2020-04-25 09:38 | ER Document Report ---
Doctor's Note Notes: 04/25/20 09:37 SOCIAL HOLD NOTE Elderly female living at home alone with history of chronic atrial fibrillation subject to recurrent falls now remains on social hold in the emergency department waiting placement. Seen for daily rounding. Vital signs are stable. Patient has no new complaints at this time. Cardiac rhythm is irregularly irregular. Chest is clear. No peripheral edema. Discharge planning team continues to manage placement issues.
[2020-04-25] MEDS: DILTIAZEM HCL 120 MG CAP.SR.24H PO SCH (10:04)
[2020-04-25] MEDS: APIXABAN 2.5 MG TABLET PO SCH ×2 (10:04→18:04)
[2020-04-25] MEDS: CEPHALEXIN 500 MG CAPSULE PO SCH ×2 (10:04→18:04)
[2020-04-25] MEDS: METFORMIN HCL 500 MG TABLET PO SCH (10:04)
[2020-04-25] MEDS: ENALAPRIL MALEATE 2.5 MG TABLET PO SCH ×2 (10:05→21:57)
[2020-04-25] MEDS: ISOSORBIDE MONONITRATE 30 MG TAB.ER.24H PO SCH ×2 (10:07→21:57)
--- NOTE | 2020-04-26 09:17 | ER Document Report ---
Doctor's Note Notes: 04/26/20 09:15 04/25/20 09:37 SOCIAL HOLD NOTE Elderly female living at home alone with history of chronic atrial fibrillation subject to recurrent falls now remains on social hold in the emergency department waiting placement. Seen for daily rounding. Blood sugars have been consistently above 250 last couple days. We noticed yesterday that patient was getting regular diet and have instituted now a diabetic diet. I reviewed her MAR and she has been on metformin 500 mg once a day. I will increase this to twice daily dosing. We will continue to monitor blood sugars. Vital signs are stable. Patient has no new complaints at this time. Cardiac rhythm is irregularly irregular. Chest is clear. No peripheral edema. Discharge planning team continues to manage placement issues.
[2020-04-26] MEDS: FUROSEMIDE 40 MG TABLET PO SCH (09:27)
[2020-04-26] MEDS: APIXABAN 2.5 MG TABLET PO SCH ×2 (10:09→18:49)
[2020-04-26] MEDS: METFORMIN HCL 500 MG TABLET PO SCH ×2 (10:09→18:49)
[2020-04-26] MEDS: ISOSORBIDE MONONITRATE 30 MG TAB.ER.24H PO SCH ×2 (10:10→21:59)
[2020-04-26] MEDS: DILTIAZEM HCL 120 MG CAP.SR.24H PO SCH (10:10)
[2020-04-26] MEDS: ENALAPRIL MALEATE 2.5 MG TABLET PO SCH ×2 (10:53→21:59)
[2020-04-26] MEDS ORDERED: ENALAPRIL MALEATE 2.5 MG TABLET ONE (21:51)
[2020-04-27] MEDS: FUROSEMIDE 40 MG TABLET PO SCH (07:53)
[2020-04-27] MEDS: ENALAPRIL MALEATE 2.5 MG TABLET PO SCH (10:59)
[2020-04-27] MEDS: METFORMIN HCL 500 MG TABLET PO SCH ×2 (10:59→17:57)
[2020-04-27] MEDS: ISOSORBIDE MONONITRATE 30 MG TAB.ER.24H PO SCH (10:59)
[2020-04-27] MEDS: DILTIAZEM HCL 120 MG CAP.SR.24H PO SCH (11:00)
[2020-04-27] MEDS: APIXABAN 2.5 MG TABLET PO SCH ×2 (11:00→17:57)
--- NOTE | 2020-04-27 14:07 | ER Document Report ---
Entered by BONY SILVER SCRIBE 04/27/20 1407 Acting as scribe for:WESLEY GARCIA MD Doctor's Note Notes: 04/27/20 13:55 This patient is alert and oriented with absolutely no complaints. She states she is just waiting to be put into an assisted living facility. Has no requests at this time. Sitting up in chair drinking water. I personally performed the services described in the documentation, reviewed and edited the documentation which was dictated to the scribe in my presence, and it accurately records my words and actions.
[2020-04-27] MEDS ORDERED: FLUCONAZOLE 100 MG TABLET PO ONE (14:18)
[2020-04-27 14:55] LABS: RBCS (WET MOUNT) RARE RBCS SEEN; T.VAGINALIS (WET MOUNT) NO TRICHOMONAS SEEN; WBCS (WET MOUNT) NO WBCS SEEN; YEAST (WET MOUNT) NO YEAST SEEN
[2020-04-27 19:02] VITALS: BP 151/46
== END 2020-04-27 19:04 | disposition home or self-care (01) ==
LOC: ER 20:31
DX: S01.01XA Laceration without foreign body of scalp, initial encounter (principal); F03.90 Unspecified dementia, unspecified severity, without behavioral disturbance, psychotic disturbance, mood disturbance, and anxiety; W19.XXXA Unspecified fall, initial encounter; Z88.2 Allergy status to sulfonamides; Z03.818 Encounter for observation for suspected exposure to other biological agents ruled out
CPT/HCPCS: 12001; 93005; 99285; 36415; 87086; 82375; 87210; 82962; 82550; 84443; 85025; 85610; 85730; 82270; 80053; 81001; 84484; 71045; 72170; 70450; 93010; U0003; A9270 ×42; C9803; 87635; J3490